=== PATIENT | female | born 1960 | race Caucasian/White ===

== ENCOUNTER → 2017-08-03 | Outpatient (CLI) | DX: Z01.812 Encounter for preprocedural laboratory examination (principal); Z01.811 Encounter for preprocedural respiratory examination; Z01.810 Encounter for preprocedural cardiovascular examination; I73.9 Peripheral vascular disease, unspecified; R94.31 Abnormal electrocardiogram [ECG] [EKG] ==

== ENCOUNTER 2017-08-07 05:48 | Inpatient (IN) | payer MEDICARE, OTHER ==
[2017-08-07] VITALS (12 sets, daily range): BP systolic 94–123; BP diastolic 66–81; PULSE 59–92; RESP 16–18; TEMP 97.4–97.7; O2SAT 95–99
[~2017-08-07] VITALS: Ht 147.3 cm; Wt 49.5 kg
[~2017-08-07 05:48] MED LIST: AMIT50TA3 PO; BENA25CA4 PO; METF500T PO; SERT-132 PO; TIZA4CAP3 PO; VENL75CA44 PO; WOMETAB5 PO
[2017-08-07] MEDS ORDERED: POVIDONE IODINE 5% (ANTISEPSIS KIT) 4 APPLICATIONS EACH NARE PRN (06:15)
[2017-08-07] MEDS ORDERED: CHLORHEXIDINE GLUCONATE 2 % 1 PACK (2 CLOTHS) TOPICAL PRN (06:15)
[2017-08-07] MEDS ORDERED: METOPROLOL TARTRATE 25 MG TAB PO PRN (06:15)
[2017-08-07] MEDS ORDERED: SODIUM CHLORID 0.9% 500 ML IV PRN (06:15)
[2017-08-07] MEDS ORDERED: PROTAMINE SULFATE 50 MG/5 ML VIAL ONE (06:35)
[2017-08-07] MEDS ORDERED: THROMBIN (TOPICAL) 20,000 UNIT SPRAY KIT ONE ×2 (06:36→11:35)
[2017-08-07] MEDS ORDERED: HEPARIN-NS/PF INJ 500 ML ONE (06:36)
[2017-08-07] MEDS ORDERED: ceFAZolin 2 GM PREMIX 0 ML ONE (06:36)
[2017-08-07] MEDS ORDERED: HEPARIN SODIUM - IV 10,000 UNITS/10 ML VIAL ONE (06:36)
[2017-08-07] MEDS ORDERED: HYDR-3366 PO (07:38)
--- NOTE | 2017-08-07 07:38 | HHI.HP ---
History of Present Illness Chief Complaint: PAD, B LE rest pain History of Present Illness 56 yo female with R > L rest pain. No tissue loss. Presents for ABF. Past/Family/Social History Past Medical History HTN OA anxiety asthma COPD DM XOL HTN Past Surgical History BTL breast surgery Social History + tobacco although she QUIT 2 weeks ago Family History NC Home Medications Reported Medications Multiple Vitamins W/ Minerals (Womens One Daily) 27 Mg-0.4 Mg Tab, 1 TAB PO DAILY 08/03/17 Tizanidine (Tizanidine) 4 Mg Cap, 4 MG PO TID for Muscle Spasm, CAP 0 Refills 08/03/17 Amitriptyline (Amitriptyline) 50 Mg Tab, 50 MG PO DAILY, TAB 08/03/17 Metformin (Metformin) 500 Mg Tab, 500 MG PO BIDPC for Blood Sugar Management, # 60 TAB 0 Refills 08/03/17 Sertraline (Sertraline) 50 Mg Tab, 50 MG PO DAILY, #30 TAB 0 Refills 08/03/17 Venlafaxine ER 24 HR (Venlafaxine ER 24 HR) 75 Mg Cap, 75 MG PO DAILY, #30 CAP 0 Refills 08/03/17 Diphenhydramine HCl (Benadryl Allergy) 25 Mg Cap, 25 MG PO QID Y for ALLERGIES 08/03/17 Discontinued Reported Medications Miscellaneous (No Current Meds) Misc 07/02/12 Discontinued Scripts Azithromycin (Zithromax Z-Shady) 250 Mg Tab, 250 MG PO DIRECTED for 5 Days 500 MG (2 TABLETS) PO ON DAY 1, THEN 250 MG (1 TABLET) PO ON DAYS 2 TO 5. Prov:Praveen Brooks MD 07/02/12 Albuterol Sulfate (Proventil Mdi) 17 Gm Aero, 2 PUFF INH QIDPRN, #1 6 Refills Prov:Praveen Brooks MD 07/02/12 Prednisone (Deltasone) 50 Mg Tab, 50 MG PO DAILY, #5 Prov:Praveen Brooks MD 07/02/12 Coded Allergies: albuterol (Unverified Allergy, Severe, SOB, 08/07/17) epinephrine (Unverified Allergy, Severe, SOB, 08/07/17) Uncoded Allergies: DRISTAN (Allergy, Severe, SOB, 07/02/12) Review of Systems Constitutional: DENIES: Weight loss, Chills Cardiovascular: COMPLAINS OF: Claudication, DENIES: Chest pain Psychiatric: COMPLAINS OF: Anxiety Physical Exam Neuro: alert, oriented, appropriately anxious, HERNANDEZ without focal deficits HEENT: NC/AT Neck: no JVD Heart: reg rate, no M Lungs: clear B Abdomen: NT Vascular: nonpalpable femoral pulses Extremities: no wounds, HERNANDEZ pending CTA ([place]) reviewed Caprini VTE Risk Assessment Caprini VTE Risk Assessment: No/Low Risk (score <= 1) Caprini Risk Assessment Model Point Value = 1 Point Value = 2 Point Value = 3 Point Value = 5 Age 41-60 Minor surgery BMI > 25 kg/m2 Swollen legs Varicose veins or History of unexplained or recurrent spontaneous Oral contraceptives or hormone replacement Sepsis (< 1 month) Serious lung disease, including pneumonia (< 1 month) Abnormal pulmonary function Acute myocardial infarction Congestive heart failure (< 1 month) History of inflammatory bowel disease Medical patient at bed rest Age 61-74 Arthroscopic surgery Major open surgery (> 45 min) Laparoscopic surgery (> 45 min) Malignancy Confined to bed (> 72 hours) Immobilizing plaster cast Central venous access Age >= 75 History of VTE Family history of VTE Factor V Leiden Prothrombin [id number] Lupus anticoagulant Anticardiolipin antibodies Elevated serum homocysteine Heparin-induced thrombocytopenia Other congenital or acquired thrombophilia Stroke (< 1 month) Elective arthroplasty Hip, pelvis, or leg fracture Acute spinal cord injury (< 1 month) Prophylaxis Regimen Total Risk Factor Score Risk Level Prophylaxis Regimen 0-1 Low Early ambulation 2 Moderate Order ONE of the following: *Sequential Compression Device (SCD) *Heparin 5000 units SQ BID 3-4 Higher Order ONE of the following medications: *Heparin 5000 units SQ TID *Enoxaparin/Lovenox 40 mg SQ daily (WT < 150 kg, CrCl > 30 mL/min) *Enoxaparin/Lovenox 30 mg SQ daily (WT < 150 kg, CrCl > 10-29 mL/min) *Enoxaparin/Lovenox 30 mg SQ BID (WT < 150 kg, CrCl > 30 mL/min) AND/OR *Sequential Compression Device (SCD) 5 or more Highest Order ONE of the following medications: *Heparin 5000 units SQ TID (Preferred with Epidurals) *Enoxaparin/Lovenox 40 mg SQ daily (WT < 150 kg, CrCl > 30 mL/min) *Enoxaparin/Lovenox 30 mg SQ daily (WT < 150 kg, CrCl > 10-29 mL/min) *Enoxaparin/Lovenox 30 mg SQ BID (WT < 150 kg, CrCl > 30 mL/min) AND *Sequential Compression Device (SCD) Assessment and Plan Plan To OR for Aorto-bifemoral bypass pt understands risks and benefits To OR then CVICU post-op Son [phone] Aashish Leigh MD August 07, 2017 07:37
[2017-08-07] MEDS: LACTATED RINGER'S 1000 ML IV PRN ×2 (07:45→16:16)
[2017-08-07] MEDS ORDERED: ACETAMINOPHEN 1000 MG/100 ML 100 ML IV ONE (07:51)
[2017-08-07] MEDS ORDERED: KETAMINE HCL 500 MG/10 ML VIAL ONE (07:51)
[2017-08-07] MEDS ORDERED: ceFAZolin INJ 1,000 MG VIAL ONE (08:37)
--- NOTE | 2017-08-07 11:23 | HHI.PR ---
cc: Aashish Leigh MD Immediate Post Op Note Procedure Date: August 07, 2017 Pre Op Diagnosis: PAD, aorto-iliac occlusive disease Post Op Diagnosis: same Surgeon: Aashish Leigh Secondary Education Professor(s): Jamel Verduzco Procedure: 1. Exploration of B FLUORESCENT LIGHTING MODEL MAKER 2. 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
[2017-08-07] MEDS ORDERED: BISACODYL 10 MG SUPP RECTAL PRN (11:30)
[2017-08-07] MEDS ORDERED: diphenhydrAMINE HCL 25 MG CAP PO PRN (11:30)
[2017-08-07] MEDS ORDERED: SENNOSIDES 8.6 MG TAB PO PRN (11:30)
[2017-08-07] MEDS ORDERED: MAGNESIUM HYDROXIDE SUSP 30 ML CUP PO PRN (11:30)
[2017-08-07] MEDS ORDERED: LACTULOSE SYRUP 20 GM/30 ML CUP PO PRN (11:30)
[2017-08-07] MEDS ORDERED: DO NOT ADM ANY ANTICOAGULANT DRUGS PRN (11:55)
[2017-08-07] MEDS ORDERED: MIDAZOLAM HCL 2 MG/2 ML VIAL ONE (11:56)
[2017-08-07] MEDS ORDERED: MORPHINE SULFATE 4 MG/ML INJ ONE (11:57)
[2017-08-07] MEDS ORDERED: LACTATED RINGER'S 1000 ML INJ 1,000 ML IV ONE (12:00)
[2017-08-07] MEDS ORDERED: NORMOSOL R INJ 1,000 ML IV ONE (12:00)
[2017-08-07] MEDS ORDERED: PROPOFOL 200 MG/20 ML AMP IV ONE (12:00)
[2017-08-07] MEDS ORDERED: GLYCOPYRROLATE 1 MG/5 ML SYRINGE IV PUSH ONE (12:00)
[2017-08-07] MEDS ORDERED: ePHEDrine/NS 25 MG/5 ML SYRINGE IV ONE (12:00)
[2017-08-07] MEDS ORDERED: ROCURONIUM INJ 50 MG/5 ML SYRINGE IV PUSH ONE (12:00)
[2017-08-07] MEDS ORDERED: LIDOCAINE HCL 1% PF 5 ML SYRINGE OTHER ONE (12:00)
[2017-08-07] MEDS ORDERED: NEOSTIGMINE 5 MG/5 ML SYRINGE IV PUSH ONE (12:00)
[2017-08-07] MEDS ORDERED: PHENYLEPH/NS 1000 MCG/10 ML SYR IV ONE (12:00)
[2017-08-07] MEDS ORDERED: DEXAMETHASONE SOD PHOS 4 MG/ML VIAL IV ONE (12:00)
[2017-08-07] MEDS ORDERED: ONDANSETRON HCL 4 MG/2 ML VIAL IV ONE (12:00)
[2017-08-07] MEDS ORDERED: LABETALOL HCL 100 MG/20 ML VIAL IV ONE (12:00)
[2017-08-07] MEDS ORDERED: SODIUM CHLORID 0.9% 500 ML INJ 500 ML IV ONE (12:00)
[2017-08-07] MEDS ORDERED: *morphine SULFATE 10 MG/ML PERIprocedure ONLY ONE ×2 (12:09→12:18)
--- NOTE | 2017-08-07 16:06 | MP ---
cc: Aashish Leigh MD DATE OF OPERATION: PREOPERATIVE DIAGNOSIS: Aortoiliac occlusive disease. POSTOPERATIVE DIAGNOSIS: Aortoiliac occlusive disease. PROCEDURES: 1. Bilateral groin exploration. 2. Exploratory laparotomy. ATTENDING SURGEON: Aashish Leigh MD FOOD SCIENTIST SURGEON: Jamel Verduzco. ANESTHESIA: General. INDICATIONS FOR PROCEDURE: Ms. Oliveira is a 56-year-old lady with aortoiliac occlusive disease and was planned for an aorto bifemoral bypass graft. Intraoperatively, it was found that she had thick porcelain aorta that even with the application of 2 aortic clamps, the infrarenal aortic occlusion was not possible and as such, the procedure was aborted. DESCRIPTION OF PROCEDURE: Informed consent was obtained from the patient. She was taken to the operating room and placed supine on the operating table. An appropriate timeout was taken to ensure the patient's identity, the operative site, and planned procedure. The administration of 1 gram of Ancef was initiated prior to skin incision. We discontinued it after a single preoperative dose. The patient was prepped from her nipples to her toes. A vertical incision was made in both groins and carried down to subcutaneous tissue with electrocautery. The common femoral artery was identified and dissected free for several centimeters. The profunda and superficial femoral arteries were, also, dissected free and encircled with vessel loops. We then made a midline laparotomy from her xiphoid to just above her pubis, carried down to subcutaneous tissue with electrocautery. The fascia was divided and the peritoneum was sharply entered. The abdominal contents were explored and noted to have no untoward pathology. The nasogastric tube was noted to be in the stomach. The viscera were swept to the patient's right-hand side and the retroperitoneum was explored. The Bookwalter retractor was set up and then, we dissected from the terminal aorta all the way up to the base of the SMA, including the renal arteries. Only at the renal arteries was the aorta somewhat soft and a clamp application, at this point, still resulted in a palpable left femoral pulse. Multiple clamps were then applied, but they were unable to occlude her aorta. Decision was made to abort the procedure at this time. The clamps were released. The abdominal contents were allowed to return back to their normal anatomic position. The abdomen was closed with #1 looped PDS, 2-0 PolySorb, and 4-0 Monocryl. The groins were closed in 4 layers with 2-0 PolySorb, 3-0 PolySorb and 4-0 Monocryl. Sponge and needle counts were correct at the end of the case. I was present and scrubbed for the entire procedure. MD PATRICK Cobos/BIRD/jarrod , 01:18 PM , 01:49 PM VITALY
[2017-08-07] MEDS: metFORMIN HCL 500 MG TAB PO SCH (18:00)
[2017-08-07] MEDS ORDERED: ONDANSETRON ODT 4 MG TAB PO PRN (18:30)
[2017-08-07] MEDS: DOCUSATE SODIUM 50 MG/SENNA 8.6 MG TAB PO SCH (20:59)
[2017-08-07] MEDS: ATORVASTATIN 40 MG TAB PO SCH (20:59)
[2017-08-07] MEDS: FAMOTIDINE 20 MG TAB PO SCH (21:00)
[2017-08-07] MEDS: HYDROmorphone HCL 2 MG TAB PO PRN (23:12)
[2017-08-08] VITALS (28 sets, daily range): BP systolic 105–157; BP diastolic 62–82; PULSE 71–101; RESP 18–20; TEMP 98–98.5; O2SAT 94–100
[2017-08-08] MEDS: HYDROmorphone HCL 2 MG TAB PO PRN ×5 (04:15→20:43)
[2017-08-08 04:47] LABS: HEMATOCRIT 39.9 % (35.0-46.0); HEMOGLOBIN 13.2 GM/DL (11.6-15.3); MEAN CELL VOLUME 90.3 FL (80.0-100.0); MEAN CORPUSCULAR HGB CONC 33.2 % (32.0-36.0); MEAN PLATELET VOLUME 9.5 FL (7.0-11.0); PLATELET COUNT 272 TH/MM3 (150-450); RED BLOOD COUNT 4.42 MIL/MM3 (4.00-5.30); RED CELL DISTRIBUTION WIDTH 14.7 % (11.6-17.2); WHITE BLOOD COUNT 14.4 TH/MM3 (4.0-11.0)
[2017-08-08 05:12] LABS: BICARBONATE 25.6 MEQ/L (21.0-32.0); CALCIUM 8.8 MG/DL (8.5-10.1); CREATININE 0.62 MG/DL (0.50-1.00)
[2017-08-08] MEDS: SERTRALINE HCL 50 MG TAB PO SCH (08:25)
[2017-08-08] MEDS: DOCUSATE SODIUM 50 MG/SENNA 8.6 MG TAB PO SCH ×2 (08:25→20:44)
[2017-08-08] MEDS: VENLAFAXINE HCL XR 75 MG CAP PO SCH (08:25)
[2017-08-08] MEDS: AMITRIPTYLINE HCL 50 MG TAB PO SCH (08:25)
[2017-08-08] MEDS: ASPIRIN 325 MG TAB PO SCH (08:26)
[2017-08-08] MEDS: FAMOTIDINE 20 MG TAB PO SCH ×2 (08:26→20:43)
[2017-08-08] MEDS: MULTIVITAMINS/MINERALS THERAPEUTIC TAB PO SCH (08:26)
[2017-08-08] MEDS: metFORMIN HCL 500 MG TAB PO SCH ×2 (08:27→17:34)
[2017-08-08] MEDS: ENOXAPARIN SODIUM 30 MG/0.3 ML SYRINGE SQ SCH (10:29)
--- NOTE | 2017-08-08 11:02 | PD.VS.PN ---
Subjective POD #: 1 Procedure(s): Exploration of B NET DEVELOPER Ex lap Subjective/Hospital Course 56/F Sitting in chair this am doing well Pt denied nausea Pain controlled Neg Flatulence NG tube in place LE warm w/ motor intact Objective Vitals/I&O Date Time Temp Pulse Resp B/P (MAP) Pulse Ox O2 Delivery O2 Flow Rate FiO2 08/08/17 10:00 82 08/08/17 09:00 87 08/08/17 08:00 83 08/08/17 07:32 98.0 91 18 110/73 (85) 94 08/08/17 07:32 94 Room Air 08/08/17 07:00 84 08/08/17 06:23 101 08/08/17 05:00 74 08/08/17 04:00 93 08/08/17 03:15 98.5 100 20 157/82 (107) 100 08/08/17 03:15 94 Room Air 08/08/17 03:00 76 08/08/17 02:00 74 08/08/17 01:00 71 08/08/17 00:00 72 08/07/17 23:40 98 Nasal Cannula 3.00 08/07/17 23:40 97.4 92 18 122/81 (95) 98 08/07/17 23:00 77 08/07/17 22:00 70 08/07/17 21:00 86 08/07/17 20:35 97.6 88 18 111/70 (84) 99 08/07/17 20:35 98 Nasal Cannula 3.00 08/07/17 20:00 76 08/07/17 19:00 59 08/07/17 18:00 86 08/07/17 17:00 65 08/07/17 16:00 72 08/07/17 16:00 97.7 88 16 123/75 (91) 97 08/07/17 15:00 74 08/07/17 14:00 97.6 88 16 94/66 (75) 95 08/07/17 14:00 94 Nasal Cannula 3.00 08/07/17 13:45 98.3 67 20 94/58 (70) 94 08/07/17 13:00 67 20 96/58 (71) 94 Arterial Line 08/07/17 12:45 64 20 107/62 (77) 94 Arterial Line 08/07/17 12:30 72 20 117/71 (86) 97 Arterial Line 08/07/17 12:15 66 20 171/69 (103) 99 171/84 (113) 08/07/17 11:55 98.0 77 20 167/84 (111) 97 176/66 (102) 08/08/17 08/08/17 08/08/17 07:00 15:00 23:00 Intake Total 475 ml Output Total 1125 ml Balance -650 ml Exam: GENERAL: A&OX3,NAD,GCS 15 SKIN: Prevena wound vac to B groins in place w/o hematoma or swelling Mid line abdominal incision intact w/o D/S mild ecchymosis present mid to distal end of incision B LE Warm and dry w/ motor intact NECK: Supple, trachea midline. No JVD or lymphadenopathy. CARDIOVASCULAR: Regular rate and rhythm without murmurs, gallops, or rubs. RESPIRATORY: Breath sounds equal bilaterally. No accessory muscle use. GASTROINTESTINAL: Abdomen S/NT, nondistended/ BS present MUSCULOSKELETAL: No cyanosis, or edema. L DP/PT biphasic R DP faint monophasic DP/PT LE warm w/ motor intact NG tube in place Laboratory Laboratory Tests Test 08/08/17 03:47 White Blood Count 14.4 Red Blood Count 4.42 Hemoglobin 13.2 Hematocrit 39.9 Mean Corpuscular Volume 90.3 Mean Corpuscular Hemoglobin 30.0 Mean Corpuscular Hemoglobin Concent 33.2 Red Cell Distribution Width 14.7 Platelet Count 272 Mean Platelet Volume 9.5 Blood Urea Nitrogen 10 Creatinine 0.62 Random Glucose 103 Calcium Level 8.8 Sodium Level 138 Potassium Level 3.9 Chloride Level 100 Carbon Dioxide Level 25.6 Anion Gap 12 Estimat Glomerular Filtration Rate 99 Assessment and Plan Assessment: (1) PVD (peripheral vascular disease) with claudication Plan 56/F w/ a Hx of PAD, B LE rest pain R > L rest pain. POD 1 Exploration of B NET DEVELOPER/Ex lap doing well w/o nausea Abdomen S/NT/+ BS LE warm w/ motor intact Pain controlled Plan Pt to remain NPO Keep NG tube in place D/C Jordan cath PT/OOB Obdulia Staton PRODUCT OPERATIONS ASSOCIATE [facility]/[place] [phone] Discharge Planning 3-4 days Obdulia Staton [facility] August 08, 2017 11:02
[2017-08-08] MEDS: ATORVASTATIN 40 MG TAB PO SCH (20:43)
[2017-08-09] VITALS (28 sets, daily range): BP systolic 105–163; BP diastolic 65–77; PULSE 63–99; RESP 16–20; TEMP 97.6–98.6; O2SAT 92–97
[2017-08-09] MEDS: HYDROmorphone HCL 2 MG TAB PO PRN ×5 (03:56→20:55)
--- NOTE | 2017-08-09 08:02 | PD.VS.PN ---
Subjective POD #: 2 Procedure(s): Exploration of B WORKERS COMPENSATION COORDINATOR Ex lap Subjective/Hospital Course looks great feet ok ambulated no nausea since NGT out sitting in chair only complaint is R groin tape Objective Vitals/I&O Date Time Temp Pulse Resp B/P (MAP) Pulse Ox O2 Delivery O2 Flow Rate FiO2 08/09/17 06:00 80 08/09/17 05:00 82 08/09/17 04:00 88 08/09/17 04:00 92 Room Air 08/09/17 03:56 98.3 85 19 148/69 (95) 92 08/09/17 03:00 80 08/09/17 02:00 80 08/09/17 01:00 82 08/09/17 00:00 94 Room Air 08/09/17 00:00 98.6 98 20 160/65 (96) 94 08/09/17 00:00 92 08/08/17 23:00 100 08/08/17 22:00 78 08/08/17 21:00 90 08/08/17 20:00 80 08/08/17 20:00 98.4 86 18 131/62 (85) 94 08/08/17 20:00 94 Room Air 08/08/17 19:00 90 08/08/17 18:00 98 08/08/17 17:00 80 08/08/17 16:00 91 08/08/17 15:15 98.0 76 18 105/67 (80) 97 08/08/17 15:14 97 Room Air 08/08/17 15:00 86 08/08/17 14:00 77 08/08/17 13:00 78 08/08/17 12:00 83 08/08/17 11:34 98.1 89 18 112/69 (83) 96 08/08/17 11:33 96 Room Air 08/08/17 11:00 88 08/08/17 10:00 82 08/08/17 09:00 87 08/09/17 08/09/17 08/09/17 07:00 15:00 23:00 Intake Total 200 ml Output Total 650 ml Balance -450 ml Exam: abdomen soft groins soft motor intact Assessment and Plan Assessment: (1) PVD (peripheral vascular disease) with claudication Plan 56/F w/ a Hx of PAD, B LE rest pain R > L rest pain. POD 2 Exploration of B WORKERS COMPENSATION COORDINATOR/Ex lap doing well w/o nausea 1. Cl liq diet and ADAT 2. Ok to d/c R groin Prevena for patient comfort 3. reg meds Discharge Planning 2 days Aashish Leigh MD August 09, 2017 08:02
[2017-08-09] MEDS: SERTRALINE HCL 50 MG TAB PO SCH (08:42)
[2017-08-09] MEDS: metFORMIN HCL 500 MG TAB PO SCH ×2 (08:42→16:51)
[2017-08-09] MEDS: FAMOTIDINE 20 MG TAB PO SCH ×2 (08:42→20:54)
[2017-08-09] MEDS: VENLAFAXINE HCL XR 75 MG CAP PO SCH (08:42)
[2017-08-09] MEDS: AMITRIPTYLINE HCL 50 MG TAB PO SCH (08:42)
[2017-08-09] MEDS: ASPIRIN 325 MG TAB PO SCH (08:43)
[2017-08-09] MEDS: DOCUSATE SODIUM 50 MG/SENNA 8.6 MG TAB PO SCH ×2 (08:43→20:54)
[2017-08-09] MEDS: MULTIVITAMINS/MINERALS THERAPEUTIC TAB PO SCH (08:49)
[2017-08-09] MEDS: ENOXAPARIN SODIUM 30 MG/0.3 ML SYRINGE SQ SCH (11:20)
[2017-08-09] MEDS: ATORVASTATIN 40 MG TAB PO SCH (20:54)
[2017-08-10] VITALS (25 sets, daily range): BP systolic 90–158; BP diastolic 56–73; PULSE 74–107; RESP 16–18; TEMP 98–98.7; O2SAT 93–95
[2017-08-10] MEDS: HYDROmorphone HCL 2 MG TAB PO PRN ×5 (02:00→23:20)
[2017-08-10] MEDS: SERTRALINE HCL 50 MG TAB PO SCH (08:18)
[2017-08-10] MEDS: VENLAFAXINE HCL XR 75 MG CAP PO SCH (08:19)
[2017-08-10] MEDS: ASPIRIN 325 MG TAB PO SCH (08:19)
[2017-08-10] MEDS: DOCUSATE SODIUM 50 MG/SENNA 8.6 MG TAB PO SCH ×2 (08:19→20:29)
[2017-08-10] MEDS: MULTIVITAMINS/MINERALS THERAPEUTIC TAB PO SCH (08:20)
[2017-08-10] MEDS: AMITRIPTYLINE HCL 50 MG TAB PO SCH (08:20)
[2017-08-10] MEDS: FAMOTIDINE 20 MG TAB PO SCH ×2 (08:20→20:29)
[2017-08-10] MEDS: metFORMIN HCL 500 MG TAB PO SCH ×2 (08:20→18:10)
--- NOTE | 2017-08-10 08:43 | PD.VS.PN ---
Subjective POD #: 1 Procedure(s): Exploration of B GAS INSPECTOR Ex lap Subjective/Hospital Course POD 3 Pt w/o c/o abdominal pain or nausea Pt tolerating clear liquid diet Pt c/o R groin discomfort + flatulence Objective Vitals/I&O Date Time Temp Pulse Resp B/P (MAP) Pulse Ox O2 Delivery O2 Flow Rate FiO2 08/10/17 07:30 16 08/10/17 06:00 78 08/10/17 05:00 78 08/10/17 04:00 76 08/10/17 03:16 95 Room Air 08/10/17 03:00 74 08/10/17 03:00 98.7 90 16 115/56 (75) 95 08/10/17 02:00 80 08/10/17 01:00 92 08/10/17 00:13 98.6 104 16 158/73 (101) 95 08/10/17 00:00 92 08/09/17 23:52 95 Room Air 08/09/17 23:00 82 08/09/17 22:00 82 08/09/17 21:00 92 08/09/17 20:00 96 Room Air 08/09/17 20:00 98.6 95 16 163/77 (105) 96 08/09/17 20:00 84 08/09/17 19:00 74 08/09/17 18:00 82 08/09/17 17:00 94 08/09/17 16:00 76 08/09/17 15:40 97.6 96 18 155/73 (100) 97 08/09/17 15:39 97 Room Air 08/09/17 15:00 88 08/09/17 14:00 78 08/09/17 13:00 84 08/09/17 12:00 77 08/09/17 11:49 94 Room Air 08/09/17 11:45 95 08/09/17 11:00 98.0 76 18 105/67 (80) 97 08/09/17 10:00 63 08/09/17 09:00 76 08/10/17 08/10/17 08/10/17 07:00 15:00 23:00 Intake Total 480 ml Output Total 360 ml Balance 120 ml Exam: GENERAL: A&OX3,NAD,GCS 15 SKIN: LE Warm and dry w/ motor intact Midline abdominal incision intact w/o S/D/O HEAD: Normocephalic. EYES: No scleral icterus. No injection or drainage. NECK: Supple, trachea midline. No JVD or lymphadenopathy. CARDIOVASCULAR: Regular rate and rhythm without murmurs, gallops, or rubs. RESPIRATORY: Breath sounds equal bilaterally. No accessory muscle use. GASTROINTESTINAL: Abdomen soft, non-tender, nondistended. R/L groins w/ prevena wound vac intact- No swelling or hematoma noted MUSCULOSKELETAL: No cyanosis, or edema. Pulses: R DP- Biphasic R PT- Faint Monophasic L DP- Biphasic L PT- Biphasic Assessment and Plan Assessment: (1) PVD (peripheral vascular disease) with claudication Plan 56/F w/ a Hx of PAD, B LE rest pain R > L rest pain. POD 3 Exploration of B GAS INSPECTOR/Ex lap doing well w/o nausea Plan Advance diet- (Heart Healthy) PT-OOB/ambulate D/C planning Obdulia Staton NP [facility] [phone] Discharge Planning Tomorrow am Obdulia Staton [facility] August 10, 2017 08:43
[2017-08-10] MEDS: ENOXAPARIN SODIUM 30 MG/0.3 ML SYRINGE SQ SCH (13:55)
[2017-08-10] MEDS: ATORVASTATIN 40 MG TAB PO SCH (20:29)
[2017-08-11] VITALS: BP 134/64; PULSE 89; PULSE 92; RESP 16; TEMP 98.6; O2SAT 95
[2017-08-11 01:00] VITALS: PULSE 88
[2017-08-11 02:00] VITALS: PULSE 93
[2017-08-11 03:00] VITALS: PULSE 92
[2017-08-11] MEDS: HYDROmorphone HCL 2 MG TAB PO PRN (03:50)
[2017-08-11 04:00] VITALS: BP 131/100; PULSE 94; RESP 16; TEMP 98.6; O2SAT 96
[2017-08-11 05:00] VITALS: PULSE 91
--- NOTE | 2017-08-11 07:45 | PD.VS.PN ---
Subjective POD #: 4 Procedure(s): Exploration of B ELECTROPHYSIOLOGY TECH Ex lap Subjective/Hospital Course POD 4 Pt w/o c/o abdominal pain or nausea Pt tolerating diet + flatulence Removed Prevena wound vac's (B groin) Objective Vitals/I&O Date Time Temp Pulse Resp B/P (MAP) Pulse Ox O2 Delivery O2 Flow Rate FiO2 08/11/17 05:00 91 08/11/17 04:00 98.6 94 16 131/100 (110) 96 08/11/17 04:00 94 08/11/17 03:00 92 08/11/17 03:00 96 Room Air 08/11/17 02:00 93 08/11/17 01:00 88 08/11/17 00:00 95 Room Air 08/11/17 00:00 92 08/11/17 00:00 98.6 89 16 134/64 (87) 95 08/10/17 23:00 85 08/10/17 22:00 88 08/10/17 21:00 86 08/10/17 20:00 92 08/10/17 20:00 95 Room Air 08/10/17 20:00 98.5 100 16 133/56 (81) 95 08/10/17 19:00 86 08/10/17 18:00 106 08/10/17 17:00 89 08/10/17 16:00 84 08/10/17 15:18 14 08/10/17 15:00 98.0 91 18 108/59 (75) 93 08/10/17 15:00 93 Room Air 08/10/17 15:00 104 08/10/17 14:00 104 08/10/17 13:00 89 08/10/17 12:00 107 08/10/17 11:00 95 Room Air 08/10/17 11:00 92 08/10/17 11:00 98.3 103 16 90/61 (71) 95 08/10/17 10:00 92 08/10/17 09:20 14 08/10/17 09:00 82 08/10/17 08:00 94 08/11/17 08/11/17 08/11/17 07:00 15:00 23:00 Intake Total 420 ml Output Total 0 ml Balance 420 ml Exam: GENERAL: A&OX3,NAD,GCS 15 SKIN: LE Warm and dry w/ motor intact Midline abdominal incision intact w/o S/D/O R/L groin incisions intact w/o R/D/S/O HEAD: Normocephalic. EYES: No scleral icterus. No injection or drainage. NECK: Supple, trachea midline. No JVD or lymphadenopathy. CARDIOVASCULAR: Regular rate and rhythm without murmurs, gallops, or rubs. RESPIRATORY: Breath sounds equal bilaterally. No accessory muscle use. GASTROINTESTINAL: Abdomen soft, non-tender, nondistended. MUSCULOSKELETAL: No cyanosis, or edema. R DP- Biphasic R PT- Faint Monophasic L DP- Biphasic L PT- Biphasic Assessment and Plan Assessment: (1) PVD (peripheral vascular disease) with claudication Plan 56/F w/ a Hx of PAD, B LE rest pain R > L rest pain. POD 4 Exploration of B ELECTROPHYSIOLOGY TECH/Ex lap doing well w/o nausea Plan Pt clear for D/C Arranged ax fem-fem surgical intervention on 08/28/17 w/ Dr. Leigh Discussed post operative care and management with pt Questions answered Obdulia Staton NP [facility]/[employer] [phone] Discharge Planning Today Obdulia Staton August 11, 2017 07:45
[2017-08-11] MEDS ORDERED: OXYC1CAP PO (07:51)
[2017-08-11] MEDS ORDERED: ASA325 PO (07:53)
[2017-08-11] MEDS ORDERED: ATOR40TA16 PO (07:53)
--- NOTE | 2017-08-11 08:05 | PD.VS.DC ---
Discharge Summary Admission Date: August 07, 2017 at 05:48 Discharge Date: August 11, 2017 Admission Diagnosis: (1) PVD (peripheral vascular disease) with claudication Discharge Diagnosis: (1) PVD (peripheral vascular disease) with claudication ICD Codes: I73.9 - Peripheral vascular disease, unspecified Brief History from admission 56 yo female with R > L rest pain. No tissue loss. Presents for ABF. Procedure(s): Exploration of B HAND SEWER Ex lap Significant Findings GENERAL: A&OX3,NAD,GCS 15 SKIN: LE Warm and dry w/ motor intact Midline abdominal incision intact w/o S/D/O R/L groin incisions intact w/o R/D/S/O HEAD: Normocephalic. EYES: No scleral icterus. No injection or drainage. NECK: Supple, trachea midline. No JVD or lymphadenopathy. CARDIOVASCULAR: Regular rate and rhythm without murmurs, gallops, or rubs. RESPIRATORY: Breath sounds equal bilaterally. No accessory muscle use. GASTROINTESTINAL: Abdomen soft, non-tender, nondistended. MUSCULOSKELETAL: No cyanosis, or edema. R DP- Biphasic R PT- Faint Monophasic L DP- Biphasic L PT- Biphasic Hospital Course: 56 yo female with R > L rest pain. No tissue loss. 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 POD 1 Sitting in chair this am doing well Pt denied nausea Pain controlled Neg Flatulence NG tube in place LE warm w/ motor intact POD 2 looks great feet ok ambulated no nausea since NGT out sitting in chair only complaint is R groin tape POD 3 Pt w/o c/o abdominal pain or nausea Pt tolerating clear liquid diet Pt c/o R groin discomfort + flatulence POD 4 Pt w/o c/o abdominal pain or nausea Pt tolerating diet + flatulence Removed Prevena wound vac's (B groin) Pt clear for d/c Pt scheduled for an ax fem-fem for revascularization on 08/28/17 Discussed w/ pt Pt agrees with plan Allergies Coded Allergies Type Severity Reaction Last Updated Verified albuterol Allergy Severe SOB 08/07/17 No epinephrine Allergy Severe SOB 08/07/17 No Uncoded Allergies Type Severity Reaction Last Updated Verified DRISTAN Allergy Severe SOB 07/02/12 08/09/17 08/09/17 08/10/17 08/10/17 08/11/17 08/11/17 06:00 18:00 06:00 18:00 06:00 18:00 Intake Total 200 ml 960 ml 480 ml 1040 ml Output Total 650 ml 360 ml 0 ml Balance -450 ml 960 ml 120 ml 1040 ml Intake Oral 200 ml 960 ml 480 ml 1040 ml IV Total 0 ml Output Urine Total 650 ml 360 ml Stool Total 0 ml # Voids 4 6 # Bowel Movements 0 0 0 Orders Procedure Category Date Status Time Remove Urinary PAUL 08/08/17 In Process Catheter 10:37 Lactated Ringer's MED 08/07/17 Complete 1000 Ml Inj (Lr 1000 M 12:00 Sodium Chlorid 0.9% MED 08/07/17 Complete 500 Ml Inj (Ns 500 M 12:00 Normosol R Inj MED 08/07/17 Complete (Normosol R Inj) 12:00 Lidocaine Pf 1% Inj MED 08/07/17 Complete (Xylocaine-Mpf 1% In 12:00 Rocuronium Inj MED 08/07/17 Complete (Zemuron Inj) 12:00 Neostigmine Inj MED 08/07/17 Complete (Prostigmine Inj) 12:00 Glycopyrrolate Inj MED 08/07/17 Complete (Robinul Inj) 12:00 Phenyleph/Ns 1000 MED 08/07/17 Complete Mcg/10ml Syr (Neosynep 12:00 Ephedrine/Ns 25 Mg/5 MED 08/07/17 Complete Ml Syr (Ephedrine/N 12:00 Dexamethasone Inj MED 08/07/17 Complete (Decadron Inj) 12:00 Ondansetron Inj MED 08/07/17 Complete (Zofran Inj) 12:00 Propofol 200 Mg/20 Ml MED 08/07/17 Complete Inj (Diprivan 200 12:00 Labetalol Inj MED 08/07/17 Complete (Trandate Inj) 12:00 Diet Clear Liquid DIET 08/09/17 Complete Breakfast Diet Heart Healthy DIET 08/10/17 Transmitted Breakfast Consult Pt Eval & PT 5/24/18 Logged Treat 08:34 Attending Discharge DISCHARGE 08/11/17 Transmitted Order 07:52 Vital Signs Date Time Temp Pulse Resp B/P (MAP) Pulse Ox O2 Delivery O2 Flow Rate FiO2 08/11/17 05:00 91 08/11/17 04:00 98.6 94 16 131/100 (110) 96 08/11/17 04:00 94 08/11/17 03:00 92 08/11/17 03:00 96 Room Air 08/11/17 02:00 93 08/11/17 01:00 88 08/11/17 00:00 95 Room Air 08/11/17 00:00 92 08/11/17 00:00 98.6 89 16 134/64 (87) 95 08/10/17 23:00 85 08/10/17 22:00 88 08/10/17 21:00 86 08/10/17 20:00 92 08/10/17 20:00 95 Room Air 08/10/17 20:00 98.5 100 16 133/56 (81) 95 08/10/17 19:00 86 08/10/17 18:00 106 08/10/17 17:00 89 08/10/17 16:00 84 08/10/17 15:18 14 08/10/17 15:00 98.0 91 18 108/59 (75) 93 08/10/17 15:00 93 Room Air 08/10/17 15:00 104 08/10/17 14:00 104 08/10/17 13:00 89 08/10/17 12:00 107 08/10/17 11:00 95 Room Air 08/10/17 11:00 92 08/10/17 11:00 98.3 103 16 90/61 (71) 95 08/10/17 10:00 92 08/10/17 09:20 14 08/10/17 09:00 82 08/10/17 08:00 94 08/10/17 07:00 86 08/10/17 07:00 95 Room Air 08/10/17 07:00 98.2 100 18 151/70 (97) 95 08/10/17 06:00 78 08/10/17 05:00 78 08/10/17 04:00 76 08/10/17 03:16 95 Room Air 08/10/17 03:00 74 08/10/17 03:00 98.7 90 16 115/56 (75) 95 08/10/17 02:00 80 08/10/17 01:00 92 08/10/17 00:13 98.6 104 16 158/73 (101) 95 08/10/17 00:00 92 08/09/17 23:52 95 Room Air 08/09/17 23:00 82 08/09/17 22:00 82 08/09/17 21:00 92 08/09/17 20:00 96 Room Air 08/09/17 20:00 98.6 95 16 163/77 (105) 96 08/09/17 20:00 84 08/09/17 19:00 74 08/09/17 18:00 82 08/09/17 17:00 94 08/09/17 16:00 76 08/09/17 15:40 97.6 96 18 155/73 (100) 97 08/09/17 15:39 97 Room Air 08/09/17 15:00 88 08/09/17 14:00 78 08/09/17 13:00 84 08/09/17 12:00 77 08/09/17 11:49 94 Room Air 08/09/17 11:45 95 08/09/17 11:00 98.0 76 18 105/67 (80) 97 08/09/17 10:00 63 08/09/17 09:00 76 08/09/17 08:00 80 08/09/17 07:23 94 Room Air 08/09/17 07:23 97.6 99 18 155/75 (101) 94 08/09/17 07:00 92 08/09/17 06:00 80 08/09/17 05:00 82 08/09/17 04:00 88 08/09/17 04:00 92 Room Air 08/09/17 03:56 98.3 85 19 148/69 (95) 92 08/09/17 03:00 80 08/09/17 02:00 80 08/09/17 01:00 82 08/09/17 00:00 94 Room Air 08/09/17 00:00 98.6 98 20 160/65 (96) 94 08/09/17 00:00 92 08/08/17 23:00 100 08/08/17 22:00 78 08/08/17 21:00 90 08/08/17 20:00 80 08/08/17 20:00 98.4 86 18 131/62 (85) 94 08/08/17 20:00 94 Room Air 08/08/17 19:00 90 08/08/17 18:00 98 08/08/17 17:00 80 08/08/17 16:00 91 08/08/17 15:15 98.0 76 18 105/67 (80) 97 08/08/17 15:14 97 Room Air 08/08/17 15:00 86 08/08/17 14:00 77 08/08/17 13:00 78 08/08/17 12:00 83 08/08/17 11:34 98.1 89 18 112/69 (83) 96 08/08/17 11:33 96 Room Air 08/08/17 11:00 88 08/08/17 10:00 82 08/08/17 09:00 87 08/08/17 08:00 83 Discharge Condition: Good Discharge Disposition: Discharge Home Discharge Instructions: ACTIVITY Activities as tolerated MAY shower then pat dry incisions No perfumed soaps while bathing NO TUB baths until incisions are fully healed DIET You may resume your regular diabetic diet MEDICATIONS You may resume your daily home medications You were prescribed cardiovascular risk factor modification medications- Aspirin and Stain- take as prescribed You were prescribed a narcotic pain medication which may cause constipation- take with an over the counter stool softener You were prescribed a narcotic pain medication which may cause drowsiness- No driving while taking this medication WOUND CARE Leave your incisions open to air Report any increase in redness drainage or swelling Any questions or concerns: Call [facility] at [facility] [phone] Obdulia Staton August 11, 2017 08:05
[2017-08-11] MEDS ORDERED: COMMODE 3-IN-11 MIS (08:07)
[2017-08-11] MEDS ORDERED: GETGO ROLLING W1 MI1 (08:07)
[2017-08-11] MEDS: metFORMIN HCL 500 MG TAB PO SCH (08:59)
[2017-08-11] MEDS: MULTIVITAMINS/MINERALS THERAPEUTIC TAB PO SCH (08:59)
[2017-08-11] MEDS: ASPIRIN 325 MG TAB PO SCH (08:59)
[2017-08-11] MEDS: FAMOTIDINE 20 MG TAB PO SCH (08:59)
[2017-08-11] MEDS: DOCUSATE SODIUM 50 MG/SENNA 8.6 MG TAB PO SCH (09:00)
[2017-08-11] MEDS: VENLAFAXINE HCL XR 75 MG CAP PO SCH (09:00)
[2017-08-11] MEDS: AMITRIPTYLINE HCL 50 MG TAB PO SCH (09:00)
[2017-08-11] MEDS: SERTRALINE HCL 50 MG TAB PO SCH (09:00)
== END 2017-08-11 09:41 | disposition home or self-care (01) | DRG 254 ==
LOC: HSDI 05:48 → HCPC 14:05
PROVIDERS: ADMIT Surgery; ATTEND Surgery
PROC: 0WJG0ZZ Inspection of Peritoneal Cavity, Open Approach (ICD-10-PCS; 2017-08-07)
PROC: 03JY0ZZ Inspection of Upper Artery, Open Approach (ICD-10-PCS; principal; 2017-08-07 08:26)
DX: I74.09 Other arterial embolism and thrombosis of abdominal aorta (principal); E11.51 Type 2 diabetes mellitus with diabetic peripheral angiopathy without gangrene; I71.2 Thoracic aortic aneurysm, without rupture; F41.9 Anxiety disorder, unspecified; I10 Essential (primary) hypertension; J44.9 Chronic obstructive pulmonary disease, unspecified; R40.2410 Glasgow coma scale score 13-15, unspecified time; Z87.891 Personal history of nicotine dependence; Z79.84 Long term (current) use of oral hypoglycemic drugs
CPT/HCPCS: 80048; 85027; 86850; 86900; 86901; 86920; C1768; J0131; J0690; J1100; J1644; J1650; J2250; J2270; J2370; J2405; J2710; J2720; J3010; J7040; J7120

== ENCOUNTER → 2017-08-25 | Outpatient (CLI) | payer MEDICARE, OTHER ==
[~2017-08-25] MED LIST changes: +ASA325 PO; +ATOR40TA16 PO; +COMMODE 3-IN-11 MIS; +GETGO ROLLING W1 MI1; +OXYC1CAP PO
[2017-08-25 13:53] LABS: AUTOMATED NEUTROPHIL # 7.8 TH/MM3 (1.8-7.7); BASOPHIL # 0.1 TH/MM3 (0-0.2); BASOPHIL % 1.2 % (0.0-2.0); EOSINOPHIL # 0.4 TH/MM3 (0-0.4); EOSINOPHIL % 3.6 % (0.0-4.0); HEMATOCRIT 38.2 % (35.0-46.0); HEMOGLOBIN 12.6 GM/DL (11.6-15.3); LYMPH % 22.5 % (9.0-44.0); LYMPHOCYTE # 2.6 TH/MM3 (1.0-4.8); MEAN CELL VOLUME 90.2 FL (80.0-100.0); MEAN CORPUSCULAR HEMOGLOBIN 29.6 PG (27.0-34.0); MEAN CORPUSCULAR HGB CONC 32.9 % (32.0-36.0); MEAN PLATELET VOLUME 8.6 FL (7.0-11.0); MONO % 5.3 % (0.0-8.0); MONOCYTE # 0.6 TH/MM3 (0-0.9); NEUT % 67.4 % (16.0-70.0); PLATELET COUNT 575 TH/MM3 (150-450); RED BLOOD COUNT 4.24 MIL/MM3 (4.00-5.30); RED CELL DISTRIBUTION WIDTH 14.7 % (11.6-17.2); WHITE BLOOD COUNT 11.6 TH/MM3 (4.0-11.0)
[2017-08-25 13:56] LABS: BICARBONATE 27.1 MEQ/L (21.0-32.0); CALCIUM 10.3 MG/DL (8.5-10.1); CREATININE 0.88 MG/DL (0.50-1.00)
== END ==
LOC: CPRE 12:39
PROVIDERS: ATTEND Surgery
DX: Z01.812 Encounter for preprocedural laboratory examination (principal); I73.9 Peripheral vascular disease, unspecified
CPT/HCPCS: 36415; 80048; 85025; 85610

== ENCOUNTER 2017-08-28 05:42 | Inpatient (IN) | payer MEDICARE, OTHER ==
[~2017-08-28] VITALS: Ht 148.6 cm; Wt 49.0 kg
[2017-08-28] VITALS (12 sets, daily range): BP systolic 95–119; BP diastolic 57–63; PULSE 81–101; RESP 16–18; TEMP 97.1–98.2; O2SAT 97–98
[2017-08-28] MEDS ORDERED: CHLORHEXIDINE GLUCONATE 2 % 1 PACK (2 CLOTHS) TOPICAL PRN (06:15)
[2017-08-28] MEDS ORDERED: LACTATED RINGER'S 1000 ML IV PRN (06:15)
[2017-08-28] MEDS ORDERED: POVIDONE IODINE 5% (ANTISEPSIS KIT) 4 APPLICATIONS EACH NARE PRN (06:15)
[2017-08-28] MEDS ORDERED: METOPROLOL TARTRATE 25 MG TAB PO PRN (06:15)
[2017-08-28] MEDS ORDERED: SODIUM CHLORID 0.9% 500 ML IV PRN (06:15)
[2017-08-28] MEDS ORDERED: HEPARIN SODIUM - IV 10,000 UNITS/10 ML VIAL ONE (06:29)
[2017-08-28] MEDS ORDERED: PROTAMINE SULFATE 50 MG/5 ML VIAL ONE (06:29)
[2017-08-28] MEDS ORDERED: THROMBIN (TOPICAL) 20,000 UNIT SPRAY KIT ONE (06:29)
[2017-08-28] MEDS ORDERED: HEPARIN-NS/PF INJ 500 ML ONE (06:30)
[2017-08-28] MEDS ORDERED: ceFAZolin 2 GM PREMIX 0 ML ONE (06:30)
[2017-08-28] MEDS ORDERED: HEPARIN SODIUM - SQ 10,000 UNITS/ML VIAL ONE (06:37)
[2017-08-28] MEDS ORDERED: ceFAZolin INJ 1,000 MG VIAL ONE (07:18)
--- NOTE | 2017-08-28 07:24 | PD.VS.PN ---
Pre-operative Note Pre-operative diagnosis: PAD, severe aortoiliac occlusive disease Planned procedure: R ax-fem-fem Interval History: Pt had attempt at ABF but her aorta was a calcific pipe that couldn't be safely cross-clamped. She recovered well and now presents for extra-anatomic bypass. No f/c or other symptoms that would preclude OR. Labs: Hct 38 plt 575 cr 0.9 INR 1.0 Blood: T&S Imaging: CTA ([facility]) reviewed Orders: NPO Ancef 1g IV OCTOR Post-operative destination: PACU, then CPCU Operative site marked: Yes Consent: Informed consent has been obtained from Deidra Oliveira. I have explained the procedure in detail and discussed the risks, benefits, and potential complications. All questions have been answered. Patient contact information: Son [phone] Aashish Leigh MD Aug 28, 2017 07:24
[2017-08-28] MEDS ORDERED: BUPIVACAINE HCL PF 0.5% 10 ML VIAL ONE (09:41)
[2017-08-28] MEDS ORDERED: ACETAMINOPHEN 1000 MG/100 ML 100 ML IV ONE (09:41)
--- NOTE | 2017-08-28 11:36 | HHI.PR ---
cc: Aashish Leigh MD Immediate Post Op Note Procedure Date: Aug 28, 2017 Pre Op Diagnosis: Severe PAD, aortoiliac occlusive disease Post Op Diagnosis: Same Surgeon: Aashish Leigh Fur Mixer(s): Aashish Mcdermott Procedure: 1. R ax-fem-fem with 8mm ringed PTFE 2. B PFA TEA with patch endarterectomy Findings: Severe occlusive disease Additional Information: strong pedal signals after reperfusion Complications: none Specimen(s) removed: none for pathology Estimated blood loss: 450mL Anesthesia: General Drains: None Fluids: 2900mL IVF Urinary Output (mLs): 750 Patient to: PACU Patient Condition: Good Implant/Devices: SEE IMPLANT LOG (if applicable) Date/Time of Procedure: SEE SURGICAL CARE RECORD Aashish Leigh MD Aug 28, 2017 11:36
[2017-08-28] MEDS ORDERED: LACTULOSE SYRUP 20 GM/30 ML CUP PO PRN (11:45)
[2017-08-28] MEDS ORDERED: BISACODYL 10 MG SUPP RECTAL PRN (11:45)
[2017-08-28] MEDS ORDERED: NALOXONE HCL 0.4 MG/ML AMP IV PUSH PRN (11:45)
[2017-08-28] MEDS ORDERED: SODIUM CHLORID 0.9% 500 ML INJ 500 ML IV ONE (12:00)
[2017-08-28] MEDS ORDERED: ceFAZolin INJ 1,000 MG VIAL IV ONE (12:00)
[2017-08-28] MEDS ORDERED: NORMOSOL R INJ 3,000 ML IV ONE (12:00)
[2017-08-28] MEDS ORDERED: ONDANSETRON HCL 4 MG/2 ML VIAL IV ONE (12:00)
[2017-08-28] MEDS ORDERED: LIDOCAINE HCL 1% PF 5 ML SYRINGE OTHER ONE (12:00)
[2017-08-28] MEDS ORDERED: ESMOLOL HCL 100 MG/10 ML VIAL IV ONE (12:00)
[2017-08-28] MEDS ORDERED: PHENYLEPH/NS 1000 MCG/10 ML SYR IV ONE (12:00)
[2017-08-28] MEDS ORDERED: ROCURONIUM INJ 50 MG/5 ML SYRINGE IV PUSH ONE (12:00)
[2017-08-28] MEDS ORDERED: PHENYLEPHRINE HCL 10 MG/ML VIAL IV ONE (12:00)
[2017-08-28] MEDS ORDERED: DEXAMETHASONE SOD PHOS 4 MG/ML VIAL IV ONE (12:00)
[2017-08-28] MEDS ORDERED: PROPOFOL 200 MG/20 ML AMP IV ONE (12:00)
[2017-08-28] MEDS ORDERED: ePHEDrine/NS 25 MG/5 ML SYRINGE IV ONE (12:00)
[2017-08-28] MEDS ORDERED: SODIUM CHLOR 0.9% 250 ML INJ 250 ML IV ONE (12:00)
[2017-08-28] MEDS ORDERED: DO NOT ADM ANY ANTICOAGULANT DRUGS PRN (12:06)
[2017-08-28] MEDS ORDERED: MIDAZOLAM HCL 2 MG/2 ML VIAL ONE (12:15)
[2017-08-28] MEDS ORDERED: MORPHINE SULFATE 4 MG/ML INJ ONE (12:15)
[2017-08-28] MEDS: MORPHINE SULFATE 30 MG/30 ML PCA IV SCH (13:11)
[2017-08-28] MEDS: LACTATED RINGER'S 1000 ML INJ 1,000 ML IV SCH (13:14)
[2017-08-28] MEDS: PCA - TOTAL MG MORPHINE DELIVERED PER SHIFT SCH ×2 (14:00→22:00)
--- NOTE | 2017-08-28 14:15 | PD.VS.PN ---
Subjective POD #: 0 Procedure(s): R ax-fem-fem with 8mm ringed PTFE B PFA TEA with patch endarterectomy Subjective/Hospital Course Pt awake in NAD S/P revascularization Pain controlled Pt doing well Pt w/o complaints and reports improved pain (0/10) to B LE LE Warm w/ motor intact Prevena wound vacs to B groins w/o hematoma or swelling Objective Vitals/I&O Date Time Temp Pulse Resp B/P (MAP) Pulse Ox O2 Delivery O2 Flow Rate FiO2 08/28/17 13:15 16 08/28/17 13:12 100 08/28/17 13:12 98.2 90 16 113/63 (80) 97 Arterial Line 08/28/17 13:11 18 08/28/17 12:00 98.1 90 20 102/63 (76) 98 Nasal Cannula 2 105/52 (69) 08/28/17 06:34 97.0 91 18 164/84 (110) 100 08/28/17 08/28/17 08/28/17 07:00 15:00 23:00 Intake Total 2900 ml Output Total 1200 ml Balance 1700 ml Exam: GENERAL:A&OX3,NAD,GCS15 SKIN: B LE Warm and dry w/ motor intact Incision to R chest wall intact with surgical glue closure/ slight ecchymosis present estiven wound B groins w/ Prevena wound vac/No hematoma or swelling GASTROINTESTINAL: Abdomen soft, non-tender, nondistended. MUSCULOSKELETAL: No cyanosis, or edema. Strong multiphasic Right DP/PT Strong multiphasic Left DP/PT Assessment and Plan Assessment: (1) PVD (peripheral vascular disease) with claudication Plan 56/F s/p revascularization POD 0 Pt doing well Pt w/o pain and reported improved LE discomfort Plan Pain control Continue neurovascular checks Obdulia Staton NP [facility]/[employer] [phone] Discharge Planning 2-3 days Obdulia Staton Aug 28, 2017 14:15
[2017-08-28] MEDS: metFORMIN HCL 500 MG TAB PO SCH (17:03)
--- NOTE | 2017-08-28 17:16 | MP ---
cc: Aashish Leigh MD DATE OF OPERATION: 08/28/2017 PREOPERATIVE DIAGNOSIS: Peripheral vascular disease with aortoiliac occlusion. POSTOPERATIVE DIAGNOSIS: Peripheral vascular disease with aortoiliac occlusion. PROCEDURE PERFORMED: 1. Right axillofemoral femorofemoral graft. 2. Right profunda endarterectomy and patch angioplasty with bovine pericardium. 3. Left profunda endarterectomy and patch angioplasty with bovine pericardium. ATTENDING SURGEON: Aashish Leigh MD STAKE DRIVER: Aashish Mcdermott. ANESTHESIA: General. INDICATIONS FOR PROCEDURE: Ms. Oliveira is a 56-year-old lady who has infrarenal aortic occlusion and she had an attempted an aortobifemoral bypass but her aorta was too calcified to clamp and she was taken to the operating room for an extra-anatomic bypass. DESCRIPTION OF PROCEDURE: Informed consent was obtained from the patient. She was taken to the operating room and placed supine on the operating table. An appropriate timeout was taken to ensure the patient's identity, the operative site and the planned procedure. The administration of 1 gram of Ancef was initiated prior to skin incision and will be discontinued after a single preoperative dose. Everyone in the room agreed the timeout and we proceeded. She was prepped from her chin to her toes. Her previous groin incisions were opened with a 10 blade, carried down through subcutaneous tissue with electrocautery. The common femoral, profunda femoris, and superficial femoral artery were all dissected free and vessel loops were placed around these. An incision was made below the right collarbone, carried down through subcutaneous tissue with electrocautery. The axillary subclavian artery was identified and dissected free and encircled with a vessel loop. A tunnel was then created between the 2 femoral incisions in the subfascial plane and then a tunnel was created from the right shoulder down to the right groin. An 8 mm ringed PTFE was passed through this tunnel. The patient was systemically heparinized and throughout the remainder of the case the ACT was kept greater than 250 with additional heparin re-boluses. Proximal and distal control of the axillary artery was obtained with fundal clamps and then a longitudinal arteriotomy was made with an 11 blade, extended with Jerry scissors. The 8 mm PTFE was spatulated and sewn end-to-side with running 5-0 Perris Prolene suture. At the completion, it was flushed and noted to be hemostatic. This wound was temporarily packed. Proximal and distal control was obtained of the right groin including the common femoral artery, profunda and superficial femoral artery. A longitudinal arteriotomy was made extending from the proximal superficial femoral artery all the way up to the mid-common femoral artery. The artery was endarterectomized and the profunda was endarterectomized. Bovine pericardial patch was brought up onto the field and sewn on with running 6-0 Prolene suture. The patch was then incised longitudinally and the 8 mm PTFE from the right shoulder was spatulated and sewn end-to-side to the patch with running 6-0 Prolene suture. At the completion it was flushed, noted to be hemostatic and with the clamps released there was a nice palpable pulse in both the profunda and the SFA. Clamps were then reapplied on the graft and a longitudinal graftotomy was made on the distal aspect of the ax-fem. This was extended using Sunset scissors. Through the fem-fem tunnel, the remainder 8 mm Perris-Flakito was then passed taking caution not to twist it. It was then spatulated and sewn end-to-side to the medial aspect of the ax-fem with running 6-0 Prolene suture. At the completion it was flushed and noted to be hemostatic. The right groin clamps were released and the fem-fem was then clamped on the left hand side. Proximal and distal control of the left groin knik arteries were obtained with profunda clamps, including the common femoral artery, profunda and SFA. A longitudinal arteriotomy was made from the SFA extending all the way up to the common femoral artery and the profunda, SFA and common femoral artery were all endarterectomized. A bovine pericardial patch was then brought up on the field and sewn on with running 6-0 Prolene suture. The patch was then incised longitudinally and the fem-fem graft was spatulated and sewn end-to-side with running 6-0 Prolene suture. At the completion, it was flushed and noted to be hemostatic. There were excellent Doppler signals in both feet. The heparin was reversed with protamine. The wounds were infiltrated with Marcaine, made hemostatic and closed with 2-0 Polysorb in 2 layers, 3-0 Polysorb and 4-0 Monocryl. The sponge and needle counts were correct at the end of the case. I was present and scrubbed and performed the entire procedure. MD PATRICK Cobos/NELLY , 04:28 PM , 05:15 PM
[2017-08-28] MEDS: FAMOTIDINE 20 MG TAB PO SCH (21:50)
[2017-08-28] MEDS: ATORVASTATIN 40 MG TAB PO SCH (21:50)
[2017-08-28] MEDS: DOCUSATE SODIUM 50 MG/SENNA 8.6 MG TAB PO SCH (21:50)
[2017-08-29] VITALS (26 sets, daily range): BP systolic 102–132; BP diastolic 50–60; PULSE 70–100; RESP 16–18; TEMP 97.5–98.7; O2SAT 94–98
[2017-08-29 05:21] LABS: HEMATOCRIT 24.2 % (35.0-46.0); HEMOGLOBIN 7.9 GM/DL (11.6-15.3); MEAN CELL VOLUME 90.5 FL (80.0-100.0); MEAN CORPUSCULAR HEMOGLOBIN 29.7 PG (27.0-34.0); MEAN CORPUSCULAR HGB CONC 32.8 % (32.0-36.0); MEAN PLATELET VOLUME 8.6 FL (7.0-11.0); PLATELET COUNT 383 TH/MM3 (150-450); RED BLOOD COUNT 2.67 MIL/MM3 (4.00-5.30); RED CELL DISTRIBUTION WIDTH 14.3 % (11.6-17.2); WHITE BLOOD COUNT 12.6 TH/MM3 (4.0-11.0)
[2017-08-29 05:40] LABS: BICARBONATE 27.3 MEQ/L (21.0-32.0); CALCIUM 8.7 MG/DL (8.5-10.1); CREATININE 0.71 MG/DL (0.50-1.00)
[2017-08-29] MEDS: PCA - TOTAL MG MORPHINE DELIVERED PER SHIFT SCH ×3 (06:00→21:38)
--- NOTE | 2017-08-29 07:59 | PD.VS.PN ---
Subjective POD #: 1 Procedure(s): R ax-fem-fem with 8mm ringed PTFE B PFA TEA with patch endarterectomy Subjective/Hospital Course complains of soreness but feet feel much better. 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 Objective Vitals/I&O Date Time Temp Pulse Resp B/P (MAP) Pulse Ox O2 Delivery O2 Flow Rate FiO2 08/29/17 07:10 98.7 80 16 132/60 (84) 96 08/29/17 07:10 80 08/29/17 06:00 86 08/29/17 06:00 86 08/29/17 06:00 16 08/29/17 06:00 16 08/29/17 05:00 86 08/29/17 04:00 86 08/29/17 03:00 80 08/29/17 03:00 97.5 70 16 103/58 (73) 98 08/29/17 02:00 89 08/29/17 01:00 80 08/29/17 00:00 82 08/28/17 23:00 83 08/28/17 23:00 97.4 82 16 95/60 (72) 98 08/28/17 22:00 16 08/28/17 22:00 16 08/28/17 22:00 87 08/28/17 21:00 84 08/28/17 20:00 88 08/28/17 19:00 87 08/28/17 19:00 97.1 92 16 95/57 (70) 97 08/28/17 18:02 81 08/28/17 17:05 94 08/28/17 16:09 98 08/28/17 15:11 98.0 99 16 119/62 (81) 97 08/28/17 15:11 95 08/28/17 14:15 101 08/28/17 14:00 18 08/28/17 14:00 18 08/28/17 13:15 16 08/28/17 13:12 100 08/28/17 13:12 98.2 90 16 113/63 (80) 97 Arterial Line 08/28/17 13:11 18 08/28/17 12:45 98.1 93 20 106/58 (74) 98 Arterial Line 08/28/17 12:30 95 20 108/53 (71) 97 Nasal Cannula 2 08/28/17 12:15 88 20 108/55 (72) 97 Nasal Cannula 2 08/28/17 12:00 98.1 90 20 102/63 (76) 98 Nasal Cannula 2 105/52 (69) 08/29/17 08/29/17 08/29/17 07:00 15:00 23:00 Intake Total 240 ml Output Total 600 ml Balance -360 ml Exam: resting comfortably, no distress R axillary incision slightly full but not tense. minimal ecchymoses R chest wall B groin Prevena in place and groins soft Pulses: palpable pedal pulses Laboratory Laboratory Tests Test 08/29/17 04:37 08/29/17 04:38 White Blood Count 12.6 Red Blood Count 2.67 Hemoglobin 7.9 Hematocrit 24.2 Mean Corpuscular Volume 90.5 Mean Corpuscular Hemoglobin 29.7 Mean Corpuscular Hemoglobin Concent 32.8 Red Cell Distribution Width 14.3 Platelet Count 383 Mean Platelet Volume 8.6 Blood Urea Nitrogen 11 Creatinine 0.71 Random Glucose 108 Calcium Level 8.7 Sodium Level 141 Potassium Level 4.6 Chloride Level 105 Carbon Dioxide Level 27.3 Anion Gap 9 Estimat Glomerular Filtration Rate 85 Assessment and Plan Assessment: (1) PVD (peripheral vascular disease) with claudication Plan POD#1 s/p ax-fem-fem with b groin reconstructions palpable pulses 1. OOB TC and PT 2. 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 D/C [place] this morning 4. Continue ASA/statin 5. Recheck CBC tomorrow Discharge Planning 2-3 days from now Aashish Leigh MD Aug 29, 2017 07:59
[2017-08-29] MEDS: MAGNESIUM HYDROXIDE SUSP 30 ML CUP PO PRN (08:45)
[2017-08-29] MEDS: DOCUSATE SODIUM 50 MG/SENNA 8.6 MG TAB PO SCH ×2 (08:46→21:38)
[2017-08-29] MEDS: AMITRIPTYLINE HCL 50 MG TAB PO SCH (08:46)
[2017-08-29] MEDS: FAMOTIDINE 20 MG TAB PO SCH ×2 (08:47→21:38)
[2017-08-29] MEDS: metFORMIN HCL 500 MG TAB PO SCH ×2 (08:47→18:13)
[2017-08-29] MEDS: ASPIRIN 325 MG TAB PO SCH (08:47)
[2017-08-29] MEDS: SENNOSIDES 8.6 MG TAB PO PRN (08:48)
[2017-08-29] MEDS: MULTIVITAMINS/MINERALS THERAPEUTIC TAB PO SCH (08:48)
[2017-08-29] MEDS: SERTRALINE HCL 50 MG TAB PO SCH (08:52)
[2017-08-29] MEDS: VENLAFAXINE HCL XR 75 MG CAP PO SCH (08:52)
[2017-08-29] MEDS: MULTIVITAMINS/IRON/MINERALS CHEWABLE TAB CHEW SCH (09:00)
[2017-08-29] MEDS ORDERED: ENOXAPARIN SODIUM 40 MG/0.4 ML SYRINGE SQ SCH (09:15)
[2017-08-29] MEDS ORDERED: ENOXAPARIN SODIUM 30 MG/0.3 ML SYRINGE SQ SCH (11:00)
[2017-08-29] MEDS: LACTATED RINGER'S 1000 ML INJ 1,000 ML IV SCH (12:20)
[2017-08-29] MEDS: MORPHINE SULFATE 30 MG/30 ML PCA IV SCH (18:16)
[2017-08-29] MEDS: ATORVASTATIN 40 MG TAB PO SCH (21:38)
[2017-08-30] VITALS (28 sets, daily range): BP systolic 75–110; BP diastolic 50–61; PULSE 81–101; RESP 16–20; TEMP 97.4–99; O2SAT 94–100
[2017-08-30 05:33] LABS: HEMATOCRIT 22.5 % (35.0-46.0); HEMOGLOBIN 7.6 GM/DL (11.6-15.3); MEAN CELL VOLUME 89.7 FL (80.0-100.0); MEAN CORPUSCULAR HEMOGLOBIN 30.3 PG (27.0-34.0); MEAN CORPUSCULAR HGB CONC 33.8 % (32.0-36.0); PLATELET COUNT 322 TH/MM3 (150-450); RED BLOOD COUNT 2.51 MIL/MM3 (4.00-5.30); RED CELL DISTRIBUTION WIDTH 14.2 % (11.6-17.2); WHITE BLOOD COUNT 13.6 TH/MM3 (4.0-11.0)
[2017-08-30] MEDS: PCA - TOTAL MG MORPHINE DELIVERED PER SHIFT SCH (06:00)
[2017-08-30] MEDS ORDERED: ONDANSETRON ODT 4 MG TAB PO PRN (07:30)
[2017-08-30] MEDS ORDERED: MORPHINE SULFATE 4 MG/ML INJ IV PUSH PRN (07:30)
[2017-08-30] MEDS ORDERED: HYDROmorphone HCL 2 MG TAB PO PRN (07:30)
--- NOTE | 2017-08-30 07:31 | PD.VS.PN ---
Subjective POD #: 2 Procedure(s): R ax-fem-fem with 8mm ringed PTFE B PFA TEA with patch endarterectomy Subjective/Hospital Course 56/F s/p R ax-fem-fem Incisions intact Pt c/o vomiting episode last night Pt denied nausea, vomiting or abdominal pain this am Pt continues to complain of soreness at the incision lines (B groins/ R chest region) Pt reported her B LE feels much better. Objective Vitals/I&O Date Time Temp Pulse Resp B/P (MAP) Pulse Ox O2 Delivery O2 Flow Rate FiO2 08/30/17 06:00 94 08/30/17 06:00 16 08/30/17 06:00 18 08/30/17 05:00 94 08/30/17 04:00 89 08/30/17 03:00 98.1 94 16 110/61 (77) 97 08/30/17 03:00 90 08/30/17 02:00 81 08/30/17 01:00 84 08/30/17 00:00 83 08/29/17 23:00 90 08/29/17 23:00 98.0 90 16 103/57 (72) 97 08/29/17 22:00 16 08/29/17 22:00 92 08/29/17 21:38 18 08/29/17 21:00 84 08/29/17 20:00 83 08/29/17 19:00 89 08/29/17 19:00 97.9 80 18 105/59 (74) 98 08/29/17 18:16 16 08/29/17 18:00 86 08/29/17 17:00 96 08/29/17 16:00 82 08/29/17 15:30 97.8 79 18 102/50 (67) 94 08/29/17 15:30 79 08/29/17 15:00 80 08/29/17 14:00 16 08/29/17 14:00 90 08/29/17 14:00 16 08/29/17 13:00 88 08/29/17 12:00 80 08/29/17 11:30 80 08/29/17 11:30 98.4 80 18 104/56 (72) 98 08/29/17 11:00 78 08/29/17 10:00 82 08/29/17 09:00 100 08/29/17 08:00 96 08/30/17 08/30/17 08/30/17 07:00 15:00 23:00 Intake Total 878 ml Output Total 800 ml Balance 78 ml Exam: GENERAL:A&OX3,NAD,GCS15 SKIN: B LE Warm and dry w/ motor intact Incision to R chest wall intact with surgical glue closure/ improving ecchymosis estiven wound B groins w/ Prevena wound vac/No hematoma or swelling GASTROINTESTINAL: Abdomen soft, non-tender, nondistended. MUSCULOSKELETAL: No cyanosis, or edema. Strong multiphasic Right DP/PT Strong multiphasic Left DP/PT Palpable R/L PT Laboratory Laboratory Tests Test 08/30/17 04:53 White Blood Count 13.6 Red Blood Count 2.51 Hemoglobin 7.6 Hematocrit 22.5 Mean Corpuscular Volume 89.7 Mean Corpuscular Hemoglobin 30.3 Mean Corpuscular Hemoglobin Concent 33.8 Red Cell Distribution Width 14.2 Platelet Count 322 Mean Platelet Volume 9.0 Assessment and Plan Assessment: (1) PVD (peripheral vascular disease) with claudication Plan POD#2 s/p ax-fem-fem with b groin reconstructions palpable pulses Plan Continue PT OOB TC/ambulate D/C [employer] PL[employer]NER Continue ASA/statin Checked am labs- Give 2U PRBC Recheck CBC tomorrow am Zofran ordered PRN for nausea Obdulia Staton NP [facility]/[employer] [phone] Discharge Planning 2-3 days from now Obdulia Staton Aug 30, 2017 07:31
[2017-08-30] MEDS: MULTIVITAMINS/IRON/MINERALS CHEWABLE TAB CHEW SCH (08:24)
[2017-08-30] MEDS: VENLAFAXINE HCL XR 75 MG CAP PO SCH (08:24)
[2017-08-30] MEDS: AMITRIPTYLINE HCL 50 MG TAB PO SCH (08:25)
[2017-08-30] MEDS: DOCUSATE SODIUM 50 MG/SENNA 8.6 MG TAB PO SCH ×2 (08:25→21:10)
[2017-08-30] MEDS: MULTIVITAMINS/MINERALS THERAPEUTIC TAB PO SCH (08:25)
[2017-08-30] MEDS: metFORMIN HCL 500 MG TAB PO SCH ×2 (08:25→17:36)
[2017-08-30] MEDS: FAMOTIDINE 20 MG TAB PO SCH ×2 (08:25→21:10)
[2017-08-30] MEDS: SERTRALINE HCL 50 MG TAB PO SCH (08:25)
[2017-08-30] MEDS: ASPIRIN 325 MG TAB PO SCH (08:26)
[2017-08-30] MEDS: ENOXAPARIN SODIUM 40 MG/0.4 ML SYRINGE SQ SCH (11:00)
[2017-08-30] MEDS: ATORVASTATIN 40 MG TAB PO SCH (21:10)
[2017-08-31] VITALS (23 sets, daily range): BP systolic 83–114; BP diastolic 52–66; PULSE 75–107; RESP 16–18; TEMP 98.3–98.8; O2SAT 93–98
[2017-08-31 05:02] LABS: HEMATOCRIT 33.1 % (35.0-46.0); HEMOGLOBIN 11.1 GM/DL (11.6-15.3); MEAN CELL VOLUME 86.4 FL (80.0-100.0); MEAN CORPUSCULAR HEMOGLOBIN 29.1 PG (27.0-34.0); MEAN CORPUSCULAR HGB CONC 33.6 % (32.0-36.0); MEAN PLATELET VOLUME 9.1 FL (7.0-11.0); PLATELET COUNT 300 TH/MM3 (150-450); RED BLOOD COUNT 3.83 MIL/MM3 (4.00-5.30); WHITE BLOOD COUNT 14.6 TH/MM3 (4.0-11.0)
[2017-08-31] MEDS: MULTIVITAMINS/IRON/MINERALS CHEWABLE TAB CHEW SCH (09:00)
[2017-08-31] MEDS: MULTIVITAMINS/MINERALS THERAPEUTIC TAB PO SCH (09:36)
[2017-08-31] MEDS: ENOXAPARIN SODIUM 40 MG/0.4 ML SYRINGE SQ SCH (09:36)
[2017-08-31] MEDS: FAMOTIDINE 20 MG TAB PO SCH ×2 (09:36→20:49)
[2017-08-31] MEDS: ASPIRIN 325 MG TAB PO SCH (09:37)
[2017-08-31] MEDS: DOCUSATE SODIUM 50 MG/SENNA 8.6 MG TAB PO SCH ×2 (09:37→20:49)
[2017-08-31] MEDS: SERTRALINE HCL 50 MG TAB PO SCH (09:37)
[2017-08-31] MEDS: metFORMIN HCL 500 MG TAB PO SCH ×2 (09:37→17:07)
[2017-08-31] MEDS: AMITRIPTYLINE HCL 50 MG TAB PO SCH (09:37)
[2017-08-31] MEDS: VENLAFAXINE HCL XR 75 MG CAP PO SCH (09:38)
[2017-08-31] MEDS: SENNOSIDES 8.6 MG TAB PO PRN (09:41)
[2017-08-31] MEDS: MAGNESIUM HYDROXIDE SUSP 30 ML CUP PO PRN (09:41)
--- NOTE | 2017-08-31 10:38 | PD.VS.PN ---
Subjective POD #: 3 Procedure(s): R ax-fem-fem with 8mm ringed PTFE B PFA TEA with patch endarterectomy Subjective/Hospital Course 56/F s/p R ax-fem-fem Incisions intact Pt denied nausea, vomiting or abdominal pain Pt continues to complain of soreness at the incision lines (B groins/ R chest region) R chest incision intact with swelling Pt w/ right sided ecchymosis (lateral aspect of chest) LE warm w/ motor intact Palpable Distal pulses present Objective Vitals/I&O Date Time Temp Pulse Resp B/P (MAP) Pulse Ox O2 Delivery O2 Flow Rate FiO2 08/31/17 07:41 98.3 92 18 114/58 (76) 98 08/31/17 06:04 82 08/31/17 05:20 87 08/31/17 04:48 83 08/31/17 03:50 98.3 94 107/66 (80) 93 08/31/17 03:49 94 08/31/17 02:23 88 08/31/17 01:17 94 08/31/17 00:08 107 08/31/17 00:04 98.8 93 108/57 (74) 93 08/30/17 23:51 96 08/30/17 23:41 18 08/30/17 22:41 91 08/30/17 21:05 94 08/30/17 20:14 93 08/30/17 19:00 92 08/30/17 19:00 99.0 92 90/51 (64) 95 08/30/17 18:00 93 08/30/17 17:00 93 08/30/17 16:00 95 08/30/17 15:00 93 08/30/17 15:00 97.9 95 20 100/59 (73) 95 08/30/17 14:00 96 08/30/17 13:30 97.9 101 20 85/61 96 08/30/17 13:14 97.4 100 20 81/52 98 08/30/17 13:00 98 08/30/17 12:00 101 08/30/17 12:00 98/55 (69) 08/30/17 11:00 98.4 87 20 83/50 (61) 94 08/30/17 11:00 88 08/30/17 10:55 98.6 84 20 75/50 98 08/30/17 10:39 98.4 99 18 83/50 100 08/31/17 08/31/17 08/31/17 07:00 15:00 23:00 Intake Total 360 ml Output Total 1150 ml Balance -790 ml Exam: GENERAL:A&OX3,NAD,GCS15 SKIN: B LE Warm and dry w/ motor intact Incision to R chest wall intact with surgical glue closure/ improving ecchymosis estiven wound/ swelling present Right chest region (lateral aspect) w/ ecchymosis B groins w/ Prevena wound vac/No hematoma or swelling GASTROINTESTINAL: Abdomen soft, non-tender, nondistended. MUSCULOSKELETAL: No cyanosis, or edema. Strong multiphasic Right DP/PT Strong multiphasic Left DP/PT Palpable R/L DP Laboratory Laboratory Tests Test 08/31/17 04:04 White Blood Count 14.6 Red Blood Count 3.83 Hemoglobin 11.1 Hematocrit 33.1 Mean Corpuscular Volume 86.4 Mean Corpuscular Hemoglobin 29.1 Mean Corpuscular Hemoglobin Concent 33.6 Red Cell Distribution Width 16.0 Platelet Count 300 Mean Platelet Volume 9.1 Assessment and Plan Assessment: (1) PVD (peripheral vascular disease) with claudication Plan POD#3 S/p ax-fem-fem with b groin reconstructions Pt continues w/ palpable distal pulses Plan Continue PT OOB TC/ambulate Continue ASA/Statin Am labs reviewed D/C planning Obdulia Staton NP [email or web address] [phone] Discharge Planning Tomorrow am Obdulia Staton Aug 31, 2017 10:38
[2017-08-31] MEDS: ATORVASTATIN 40 MG TAB PO SCH (20:49)
[2017-09-01] VITALS (9 sets, daily range): BP systolic 113–123; BP diastolic 59–64; PULSE 78–106; RESP 16; TEMP 97.7–98.5; O2SAT 93–95
[2017-09-01] MEDS: MULTIVITAMINS/IRON/MINERALS CHEWABLE TAB CHEW SCH (09:00)
[2017-09-01] MEDS ORDERED: OXYC1CAP PO (09:11)
--- NOTE | 2017-09-01 09:19 | PD.VS.PN ---
Subjective POD #: 4 Procedure(s): R ax-fem-fem with 8mm ringed PTFE B PFA TEA with patch endarterectomy Subjective/Hospital Course 56/F s/p R ax-fem-fem Incisions intact Pt c/o soreness at the incision lines (B groins/ R chest region) R chest incision intact with improved swelling Pt w/ right sided ecchymosis (lateral aspect of chest) - IMPROVED LE warm w/ motor intact Palpable Distal pulses present Objective Vitals/I&O Date Time Temp Pulse Resp B/P (MAP) Pulse Ox O2 Delivery O2 Flow Rate FiO2 09/01/17 07:15 98.5 85 16 113/59 (77) 95 09/01/17 07:15 85 09/01/17 04:00 83 09/01/17 04:00 97.7 92 16 123/64 (83) 95 09/01/17 00:00 78 09/01/17 00:00 97.9 95 16 119/60 (79) 93 08/31/17 20:00 98.3 89 18 91/56 (68) 97 08/31/17 20:00 84 08/31/17 18:00 90 08/31/17 17:00 90 08/31/17 15:30 79 08/31/17 15:30 98.5 79 16 83/52 (62) 94 08/31/17 15:00 78 08/31/17 14:00 92 08/31/17 13:00 90 08/31/17 12:00 76 08/31/17 11:45 98.4 75 16 97 08/31/17 11:00 106 08/31/17 10:00 86 09/01/17 09/01/17 09/01/17 07:00 15:00 23:00 Intake Total 480 ml Output Total 700 ml Balance -220 ml Exam: GENERAL:A&OX3,NAD,GCS15 SKIN: B LE Warm and dry w/ motor intact Incision to R chest wall intact with surgical glue closure/ improving ecchymosis estiven wound/ IMPROVED swelling present Right chest region (lateral aspect) w/ ecchymosis -improved B groins w/ Prevena wound vac/No hematoma or swelling GASTROINTESTINAL: Abdomen soft, non-tender, nondistended. MUSCULOSKELETAL: No cyanosis, or edema. Palpable R/L DP Assessment and Plan Assessment: (1) PVD (peripheral vascular disease) with claudication Plan POD#4 S/p ax-fem-fem with b groin reconstructions Pt continues w/ palpable distal pulses Plan Pt clear for d/c Arranged out pt f/u LEAVE wound vacs intact- will remove out pt on MONDAY Continue ASA/Statin Obdulia Staton NP [facility]/[employer] [phone] Discharge Planning Today Obdulia StatonP Sep 01, 2017 09:19
--- NOTE | 2017-09-01 09:21 | PD.VS.DC ---
Discharge Summary Admission Date: Aug 28, 2017 at 05:42 Discharge Date: Sep 01, 2017 Admission Diagnosis: (1) PVD (peripheral vascular disease) with claudication Discharge Diagnosis: (1) PVD (peripheral vascular disease) with claudication ICD Codes: I73.9 - Peripheral vascular disease, unspecified Brief History from admission 56/F Pt had attempt at ABF but her aorta was a calcific pipe that couldn't be safely cross-clamped. She recovered well and now presents for extra-anatomic bypass. No f/c or other symptoms that would preclude OR. Procedure(s): R ax-fem-fem with 8mm ringed PTFE B PFA TEA with patch endarterectomy Significant Findings Laboratory Tests Test 08/30/17 04:53 08/31/17 04:04 White Blood Count 13.6 TH/MM3 (4.0-11.0) 14.6 TH/MM3 (4.0-11.0) Red Blood Count 2.51 MIL/MM3 (4.00-5.30) 3.83 MIL/MM3 (4.00-5.30) Hemoglobin 7.6 GM/DL (11.6-15.3) 11.1 GM/DL (11.6-15.3) Hematocrit 22.5 % (35.0-46.0) 33.1 % (35.0-46.0) Hospital Course: 56/F Pt had attempt at ABF but her aorta was a calcific pipe that couldn't be safely cross-clamped. She recovered well and now presents for extra-anatomic bypass. No f/c or other symptoms that would preclude OR. PT S/P R ax-fem-fem with 8mm ringed PTFE/B PFA TEA with patch endarterectomy POD 0 Pt awake in NAD S/P revascularization Pain controlled Pt doing well Pt w/o complaints and reports improved pain (0/10) to B LE LE Warm w/ motor intact Prevena wound vacs to B groins w/o hematoma or swelling POD 1 complains of soreness but feet feel much better. [employer] working for pain control POD 2 Incisions intact Pt c/o vomiting episode last night Pt denied nausea, vomiting or abdominal pain this am Pt continues to complain of soreness at the incision lines (B groins/ R chest region) Pt reported her B LE feels much better. POD 3 Incisions intact Pt denied nausea, vomiting or abdominal pain Pt continues to complain of soreness at the incision lines (B groins/ R chest region) R chest incision intact with swelling Pt w/ right sided ecchymosis (lateral aspect of chest) LE warm w/ motor intact Palpable Distal pulses present POD 4 Incisions intact Pt c/o soreness at the incision lines (B groins/ R chest region) R chest incision intact with improved swelling Pt w/ right sided ecchymosis (lateral aspect of chest) - IMPROVED LE warm w/ motor intact Palpable Distal pulses present Pt clear for d/c Arranged out pt f/u LEAVE wound vacs intact- will remove out pt on MONDAY Continue ASA/Statin E -Forcse checked- No recent activity Prescribed appropriate post operative pain management Allergies Coded Allergies Type Severity Reaction Last Updated Verified albuterol Allergy Severe SOB 08/28/17 No epinephrine Allergy Severe SOB 08/28/17 No Uncoded Allergies Type Severity Reaction Last Updated Verified DRISTAN Allergy Severe SOB 07/02/12 08/30/17 08/30/17 08/31/17 08/31/17 09/01/17 09/01/17 06:00 18:00 06:00 18:00 06:00 18:00 Intake Total 878 ml 1800 ml 360 ml 1080 ml 480 ml Output Total 800 ml 850 ml 1150 ml 800 ml 700 ml Balance 78 ml 950 ml -790 ml 280 ml -220 ml Intake Oral 410 ml 960 ml 360 ml 1080 ml 480 ml IV Total 468 ml Packed Cells 800 ml Blood Product IV Normal Saline Flush 40 ml Output Urine Total 800 ml 850 ml 1150 ml 800 ml 700 ml # Bowel Movements 0 0 0 0 Laboratory Tests Test 08/30/17 04:53 08/31/17 04:04 White Blood Count 13.6 TH/MM3 14.6 TH/MM3 Red Blood Count 2.51 MIL/MM3 3.83 MIL/MM3 Hemoglobin 7.6 GM/DL 11.1 GM/DL Hematocrit 22.5 % 33.1 % Mean Corpuscular Volume 89.7 FL 86.4 FL Mean Corpuscular Hemoglobin 30.3 PG 29.1 PG Mean Corpuscular Hemoglobin Concent 33.8 % 33.6 % Red Cell Distribution Width 14.2 % 16.0 % Platelet Count 322 TH/MM3 300 TH/MM3 Mean Platelet Volume 9.0 FL 9.1 FL Orders Procedure Category Date Status Time Blood Product PAUL 08/30/17 In Process Administration 06:31 Cbc No Diff, Includes LAB 08/31/17 Complete Plts 06:00 Oxycodone (Roxicodone) MED 08/30/17 In Process 07:30 Hydromorphone MED 08/30/17 In Process (Dilaudid) 07:30 Morphine Inj MED 08/30/17 In Process (Morphine Inj) 07:30 Ondansetron Odt MED 08/30/17 In Process (Zofran Odt) 07:30 Red Blood Cells (Rbc) BBK 08/30/17 Complete 10:08 Sodium Chlor 0.9% 250 MED 08/28/17 Complete Ml Inj (Ns 250 Ml 12:00 Sodium Chlorid 0.9% MED 08/28/17 Complete 500 Ml Inj (Ns 500 M 12:00 Normosol R Inj MED 08/28/17 Complete (Normosol R Inj) 12:00 Lidocaine Pf 1% Inj MED 08/28/17 Complete (Xylocaine-Mpf 1% In 12:00 Rocuronium Inj MED 08/28/17 Complete (Zemuron Inj) 12:00 Phenyleph/Ns 1000 MED 08/28/17 Complete Mcg/10ml Syr (Neosynep 12:00 Phenylephrine Inj MED 08/28/17 Complete (Neosynephrine Inj) 12:00 Ephedrine/Ns 25 Mg/5 MED 08/28/17 Complete Ml Syr (Ephedrine/N 12:00 Esmolol Bolus Inj MED 08/28/17 Complete (Brevibloc Bolus Inj) 12:00 Dexamethasone Inj MED 08/28/17 Complete (Decadron Inj) 12:00 Ondansetron Inj MED 08/28/17 Complete (Zofran Inj) 12:00 Cefazolin Inj (Ancef MED 08/28/17 Complete Inj) 12:00 Propofol 200 Mg/20 Ml MED 08/28/17 Complete Inj (Diprivan 200 12:00 Attending Discharge DISCHARGE 09/01/17 Transmitted Order Vital Signs Date Time Temp Pulse Resp B/P (MAP) Pulse Ox O2 Delivery O2 Flow Rate FiO2 09/01/17 07:15 98.5 85 16 113/59 (77) 95 09/01/17 07:15 85 09/01/17 04:00 83 09/01/17 04:00 97.7 92 16 123/64 (83) 95 09/01/17 00:00 78 09/01/17 00:00 97.9 95 16 119/60 (79) 93 08/31/17 20:00 98.3 89 18 91/56 (68) 97 08/31/17 20:00 84 08/31/17 18:00 90 08/31/17 17:00 90 08/31/17 15:30 79 08/31/17 15:30 98.5 79 16 83/52 (62) 94 08/31/17 15:00 78 08/31/17 14:00 92 08/31/17 13:00 90 08/31/17 12:00 76 08/31/17 11:45 98.4 75 16 97 08/31/17 11:00 106 08/31/17 10:00 86 08/31/17 09:00 92 08/31/17 08:00 90 08/31/17 07:41 98.3 92 18 114/58 (76) 98 08/31/17 06:04 82 08/31/17 05:20 87 08/31/17 04:48 83 08/31/17 03:50 98.3 94 107/66 (80) 93 08/31/17 03:49 94 08/31/17 02:23 88 08/31/17 01:17 94 08/31/17 00:08 107 08/31/17 00:04 98.8 93 108/57 (74) 93 08/30/17 23:51 96 08/30/17 23:41 18 08/30/17 22:41 91 08/30/17 21:05 94 08/30/17 20:14 93 08/30/17 19:00 92 08/30/17 19:00 99.0 92 90/51 (64) 95 08/30/17 18:00 93 08/30/17 17:00 93 08/30/17 16:00 95 08/30/17 15:00 93 08/30/17 15:00 97.9 95 20 100/59 (73) 95 08/30/17 14:00 96 08/30/17 13:30 97.9 101 20 85/61 96 08/30/17 13:14 97.4 100 20 81/52 98 08/30/17 13:00 98 08/30/17 12:00 101 08/30/17 12:00 98/55 (69) 08/30/17 11:00 98.4 87 20 83/50 (61) 94 08/30/17 11:00 88 08/30/17 10:55 98.6 84 20 75/50 98 08/30/17 10:39 98.4 99 18 83/50 100 08/30/17 10:00 90 08/30/17 09:00 81 08/30/17 08:00 90 08/30/17 07:00 91 08/30/17 07:00 98.1 94 20 92/52 (65) 95 08/30/17 06:00 94 08/30/17 06:00 16 08/30/17 06:00 18 08/30/17 05:00 94 08/30/17 04:00 89 08/30/17 03:00 98.1 94 16 110/61 (77) 97 08/30/17 03:00 90 08/30/17 02:00 81 08/30/17 01:00 84 08/30/17 00:00 83 08/29/17 23:00 90 08/29/17 23:00 98.0 90 16 103/57 (72) 97 08/29/17 22:00 16 08/29/17 22:00 92 08/29/17 21:38 18 08/29/17 21:00 84 08/29/17 20:00 83 08/29/17 19:00 89 08/29/17 19:00 97.9 80 18 105/59 (74) 98 08/29/17 18:16 16 08/29/17 18:00 86 08/29/17 17:00 96 08/29/17 16:00 82 08/29/17 15:30 97.8 79 18 102/50 (67) 94 08/29/17 15:30 79 08/29/17 15:00 80 08/29/17 14:00 16 08/29/17 14:00 90 08/29/17 14:00 16 08/29/17 13:00 88 08/29/17 12:00 80 08/29/17 11:30 80 08/29/17 11:30 98.4 80 18 104/56 (72) 98 08/29/17 11:00 78 08/29/17 10:00 82 Discharge Condition: Good Discharge Disposition: Discharge Home Discharge Instructions: DIET Maintain a heart healthy diet ACTIVITY Activity as tolerated You may shower then pat dry incision -AFTER your wound vacs are removed NO tub baths or swimming until your incision is fully healed WOUND CARE B Groin Wound vacs to remain until MONDAY Leave your incision open to air once your wound vacs are removed Call to report an increase in swelling, pain, drainage or redness MEDICATIONS You were prescribed a narcotic pain medication that may cause drowsiness- no driving while taking this medication You were prescribed a narcotic pain medication that may cause constipation- Take with an over the counter stool softener Any questions or concerns: Call [facility] at [facility] [phone] Obdulia Staton Sep 01, 2017 09:21
[2017-09-01] MEDS: VENLAFAXINE HCL XR 75 MG CAP PO SCH (10:10)
[2017-09-01] MEDS: ENOXAPARIN SODIUM 40 MG/0.4 ML SYRINGE SQ SCH (10:10)
[2017-09-01] MEDS: SERTRALINE HCL 50 MG TAB PO SCH (10:10)
[2017-09-01] MEDS: FAMOTIDINE 20 MG TAB PO SCH (10:11)
[2017-09-01] MEDS: MULTIVITAMINS/MINERALS THERAPEUTIC TAB PO SCH (10:11)
[2017-09-01] MEDS: metFORMIN HCL 500 MG TAB PO SCH (10:11)
[2017-09-01] MEDS: DOCUSATE SODIUM 50 MG/SENNA 8.6 MG TAB PO SCH (10:11)
[2017-09-01] MEDS: AMITRIPTYLINE HCL 50 MG TAB PO SCH (10:11)
[2017-09-01] MEDS: ASPIRIN 325 MG TAB PO SCH (10:12)
== END 2017-09-01 13:50 | disposition home or self-care (01) | DRG 254 ==
LOC: HSDI 05:42 → HCPC 13:01
PROVIDERS: ADMIT Surgery; ATTEND Surgery
PROC: 03150J8 Bypass Right Axillary Artery to Bilateral Upper Leg Artery with Synthetic Substitute, Open Approach (ICD-10-PCS; 2017-08-28)
PROC: 04UL0KZ Supplement Left Femoral Artery with Nonautologous Tissue Substitute, Open Approach (ICD-10-PCS; 2017-08-28)
PROC: 04UK0KZ Supplement Right Femoral Artery with Nonautologous Tissue Substitute, Open Approach (ICD-10-PCS; 2017-08-28)
PROC: 04CL0ZZ Extirpation of Matter from Left Femoral Artery, Open Approach (ICD-10-PCS; principal; 2017-08-28 07:31)
PROC: 04CK0ZZ Extirpation of Matter from Right Femoral Artery, Open Approach (ICD-10-PCS; 2017-08-28 07:31)
PROC: 30233N1 Transfusion of Nonautologous Red Blood Cells into Peripheral Vein, Percutaneous Approach (ICD-10-PCS; 2017-08-30)
DX: I74.09 Other arterial embolism and thrombosis of abdominal aorta (principal); I73.9 Peripheral vascular disease, unspecified; R11.10 Vomiting, unspecified
CPT/HCPCS: 36415; 36430; 80048; 85025; 85027; 85610; 86850; 86900; 86901; 86920; C1768; J0131; J0690; J1100; J1644; J1650; J2250; J2270; J2370; J2405; J2720; J3010; J7040; J7050; J7120; P9016

== ENCOUNTER 2017-09-04 10:26 | Emergency (ER) | payer MEDICARE, OTHER ==
[~2017-09-04] VITALS: Ht 147.3 cm; Wt 45.0 kg
[2017-09-04 10:33] VITALS: BP 122/57; PULSE 78; RESP 17; TEMP 98.2; O2SAT 98
--- NOTE | 2017-09-04 10:51 | PD ---
HPI Chief Complaint: Medical Clearance Time Seen by Provider: 10:35 Travel History International Travel<30 days: No Contact w/Intl Traveler<30days: No Traveled to known affect area: No History of Present Illness HPI 56-year-old female presents to the emergency department via EMS with complaint that her right groin wound VAC is not suctioning since this morning when she woke up. She had bilateral femoral bypass on August [address] Leigh. Her left groin wound VAC is working properly. Denies fever, vomiting. Denies chest pain , shortness breath, abdominal pain. Denies lightheadedness, dizziness, headache. Denies anticoagulant therapy. The only complaint is that she has had continued feet pain and tightness after the surgery. She has been taking oxycodone for symptom management and has not taken it this morning yet. Rates pain 8/10. Worse with pressure and ambulation to her feet. Says her bilateral groin wounds are also painful. Allergies to albuterol. Primary CARE providers Dr. may. Dr. Leigh is cardiovascular surgeon. History of peripheral vascular disease with aortoiliac occlusion, type 2 diabetes, hypercholesterolemia, COPD. Has no other medical complaints. No other modifying factors or associated signs and symptoms. PFSH Past Medical History Cancer: No Cardiovascular Problems: Yes (IRREGULAR RHYTHM) Diabetes: Yes (NIDDM) Endocrine: Yes Genitourinary: No Hepatitis: No Hiatal Hernia: No Immune Disorder: No Musculoskeletal: Yes (BACK AND NECK PAIN PREVIOUS INJURY, OCCAS BILAT HIP PAIN ) Neurologic: Yes (NUMBNESS TO BLE, OCCAS NUMBNESS TO HANDS) Psychiatric: Yes Reproductive: No Respiratory: Yes (COPD, ASTHMA, BRONCHITIS) Thyroid Disease: No Menopausal: Yes Tubal Ligation: Yes Past Surgical History Abdominal Surgery: No AICD: No Body Medical Devices: PIN IN L ELBOW, Cardiac Surgery: Yes (ANGIOPLASTY, AORTIC/ILLIAC BY PASS 08/07/17) Ear Surgery: No Endocrine Surgery: No Eye Surgery: No Genitourinary Surgery: No Gynecologic Surgery: Yes (TUBAL) Joint Replacement: No Oral Surgery: Yes (TONSILLECTOMY, EXTRACTIONS) Pacemaker: No Thoracic Surgery: Yes (LEFT BREAST BIOPSY/LUMPECTOMY X2-BENIGN TUMOR) Tonsillectomy: Yes Social History Alcohol Use: No Tobacco Use: Yes (1/2 PPD) Substance Use: Yes (CANNABIS, DAILY CBD OILS DAILY) Allergies-Medications (Allergen,Severity, Reaction): Coded Allergies: albuterol (Unverified Allergy, Severe, SOB, 08/28/17) epinephrine (Unverified Allergy, Severe, SOB, 08/28/17) Uncoded Allergies: DRISTAN (Allergy, Severe, SOB, 07/02/12) Reported Meds & Prescriptions Reported Meds & Active Scripts Active Oxycodone (Oxycodone HCl) 5 Mg Cap 5 Mg PO Q4H PRN Commode 3-in-1 (Device) 1 Mis Mis Ea .XX DIRECTED Walker Rolling/GetGo (Device) 1 Mis Mis Ea .XX DIRECTED Px Aspirin (Aspirin) 325 Mg Tab 325 Mg PO DAILY 30 Days Atorvastatin (Atorvastatin Calcium) 40 Mg Tab 40 Mg PO HS 30 Days Reported Womens One Daily (Multiple Vitamins W/ Minerals) 27 Mg-0.4 Mg Tab 1 Tab PO DAILY Tizanidine (Tizanidine HCl) 4 Mg Cap 4 Mg PO TID Amitriptyline (Amitriptyline HCl) 50 Mg Tab 50 Mg PO DAILY Metformin (Metformin HCl) 500 Mg Tab 500 Mg PO BIDPC Sertraline (Sertraline HCl) 50 Mg Tab 50 Mg PO DAILY Venlafaxine ER 24 HR (Venlafaxine HCl) 75 Mg Cap 75 Mg PO DAILY Benadryl Allergy (Diphenhydramine HCl) 25 Mg Cap 25 Mg PO QID PRN Review of Systems Except as stated in HPI: all other systems reviewed are Neg Physical Exam Narrative GENERAL: Well-nourished, well-developed female patient, in no acute distress; afebrile, nontoxic-appearing SKIN: Warm and dry. Right groin wound vac sponge in place and without suction; surgical incision below is well approximated with sutures intact and without erythema, edema; minimal amount of dark red drainage noted. Left groin with wound VAC dressing in place and suction working appropriately. Bilateral lower extremities are supple and nontender with 1+ pedal pulses and sensory intact and without erythema or edema. HEAD: Atraumatic. Normocephalic. EYES: Pupils equal and round. No scleral icterus. No injection or drainage. ENT: Mucosa pink and moist. Airway patent. NECK: Trachea midline. CARDIOVASCULAR: Regular rate. RESPIRATORY: No accessory muscle use. GASTROINTESTINAL: Flat. MUSCULOSKELETAL: No obvious deformities. No clubbing. No cyanosis. No edema. NEUROLOGICAL: Awake and alert. Oriented 3. No obvious cranial nerve deficits. Motor grossly within normal limits. Normal speech. PSYCHIATRIC: Appropriate mood and affect; insight and judgment normal. Data Data Last Documented VS Vital Signs Date Time Temp Pulse Resp B/P (MAP) Pulse Ox O2 Delivery O2 Flow Rate FiO2 09/04/17 10:33 98.2 78 17 122/57 (78) 98 Orders Orders Oxycodone-Acetamin 5-325 Mg (Percocet (09/04/17 11:00) MDM Medical Decision Making Medical Screen Exam Complete: Yes Emergency Medical Condition: Yes Medical Record Reviewed: Yes Differential Diagnosis Encounter for management of wound VAC, surgical wound recheck, medical clearance Narrative Course 56-year-old female arrives via EMS for management of her right groin wound VAC; it is not suctioning. She had bilateral femoral bypass on August [address] Leihg. 1045: I spoke with Dr. Leigh and he is coming to the bedside to see the patient. 1106: Dr. Leigh at bedside. 1115: Dr. Leigh remove the wound VAC and does not want it replaced. He will follow up with her outpatient at her scheduled appointment. She is also asking for physical therapy, which she had offered her after the surgery. Physical therapy ordered. wound Dressing ordered. Instructed patient to follow-up with Dr. Leigh at her scheduled appointment. Instructed patient to follow up with primary care provider. Patient verbalizes understanding and agreement with treatment plan. Patient is medically cleared and stable for discharge. Discussed reasons to return to the emergency department. Patient agrees with treatment plan. The patients vital signs are stable and the patient is stable for outpatient follow-up and treatment. Patient discharged home, stable and in no acute distress. Diagnosis Primary Impression: Encounter for management of wound VAC Referrals: Aashish Leigh MD Primary Care Physician Patient Instructions: General Instructions Additional Instructions: Follow-up with Dr. Leigh Med/Other Pt SpecificInfo: No Change to Meds, No Meds Exist/No RX given Disposition: 01 DISCHARGE HOME Condition: Stable Lakisha Yuan Sep 04, 2017 10:51
[2017-09-04] MEDS ORDERED: oxyCODONE/ACETAMINOPHEN 5 MG/325 MG TAB PO ONE (11:00)
--- NOTE | 2017-09-04 11:26 | HHI.FF ---
Face to Face Verification Diagnosis: (1) PAD (peripheral artery disease) Physical Therapy Order: Evaluate and Treat, Improve ambulation, Strength and gait training I have seen patient Deidra Oliveira on 09/04/17. My clinical findings support the need for the requested home health care services because: The patient was offered physical therapy by Dr. Leigh on August 28 and the patient declined at that time. She is now requesting physical therapy. Ltd mobility - disease progression I certify that my clinical findings support that this patient is homebound because: The patient was offered physical therapy by Dr. Leigh on August 28 and the patient declined at that time. She is now requesting physical therapy. Unsteady gait/balance Lakisha Yuan Sep 04, 2017 11:26
--- NOTE | 2017-09-04 12:09 | PD.VS.PN ---
Subjective Subjective/Hospital Course Pt s/p R ax-fem-fem who presents with R groin VAC malfunction (Prevena) and B foot pain. No fevers. Objective Vitals/I&O Date Time Temp Pulse Resp B/P (MAP) Pulse Ox O2 Delivery O2 Flow Rate FiO2 09/04/17 10:33 98.2 78 17 122/57 (78) 98 Physical Exam No distress R axillary incision R and L Prevena removed. R groin with superficial breakdown and serous drainage - no odor and no incisional erythema L groin incact palpable DP bilaterally Assessment and Plan Plan Ax-fem-fem with groin wound breakdown and Prevena malfunction 1. F/u in my clinic next week - appointment made for 09/13 2 she refused rehab when in hospital but now would like to have rehab which i think is reasonable. discussed with ED 3. unclear cause of B foot pain - palpable pulses Aashish Leigh MD [employer] electrical line worker [facility] Surgery at [facility] [phone] Aashish Leigh MD Sep 04, 2017 12:09
[2017-09-04 14:10] VITALS: BP 109/63; PULSE 75; RESP 17; O2SAT 96
== END 2017-09-04 14:12 | disposition home or self-care (01) ==
LOC: NEPD 10:26
DX: Z48.03 Encounter for change or removal of drains (principal); G89.18 Other acute postprocedural pain; Z98.890 Other specified postprocedural states
CPT/HCPCS: 99281

== ENCOUNTER 2017-09-05 17:37 | Emergency (ER) | payer MEDICARE, OTHER ==
[~2017-09-05] VITALS: Ht 147.3 cm; Wt 52.0 kg
[2017-09-05 17:39] VITALS: PULSE 141; RESP 26
[2017-09-05] MEDS ORDERED: SODIUM CHLOR 0.9% 1000 ML INJ 1,000 ML IV ONE (17:45)
--- NOTE | 2017-09-05 18:04 | RADRPT ---
EXAM DATE: 09/05/2017 6:00 PM EDT AGE/SEX: 56 years / Female INDICATIONS: Palpitations. CLINICAL DATA: This is the patient's initial encounter. Patient reports that signs and symptoms have been present for 1 day and indicates a pain score of Nonresponsive. MEDICAL/SURGICAL HISTORY: Non-responsive. Non-responsive. COMPARISON: [facility] [place] [place] [facility] [place], 08/03/2017. . FINDINGS: No new focal pleural or parenchymal opacities. Cardiomegaly saw contours are within normal limits. Mike ny thorax is intact. CONCLUSION: 1. No acute abnormality or significant interval change. Electronically signed by: Elmer Escudero MD 09/05/2017 6:03 PM EDT
[2017-09-05] MEDS ORDERED: NOREPINEPHRINE 4 MG/4 ML AMP ONE (18:12)
[2017-09-05 18:15] VITALS: PULSE 137; RESP 41; TEMP 97.8
[2017-09-05] MEDS ORDERED: SODIUM CHLOR 0.9% 250 ML INJ 250 ML IV ONE (18:15)
[2017-09-05 18:19] LABS: AUTOMATED NEUTROPHIL # 9.5 TH/MM3 (1.8-7.7); BASOPHIL % 0.3 % (0.0-2.0); EOSINOPHIL # 0.2 TH/MM3 (0-0.4); EOSINOPHIL % 2.1 % (0.0-4.0); HEMATOCRIT 27.8 % (35.0-46.0); HEMOGLOBIN 9.2 GM/DL (11.6-15.3); LYMPH % 4.4 % (9.0-44.0); LYMPHOCYTE # 0.5 TH/MM3 (1.0-4.8); MEAN CELL VOLUME 89.3 FL (80.0-100.0); MEAN CORPUSCULAR HEMOGLOBIN 29.5 PG (27.0-34.0); MEAN PLATELET VOLUME 9.3 FL (7.0-11.0); MONO % 3.9 % (0.0-8.0); MONOCYTE # 0.4 TH/MM3 (0-0.9); NEUT % 89.3 % (16.0-70.0); PLATELET COUNT 343 TH/MM3 (150-450); RED BLOOD COUNT 3.11 MIL/MM3 (4.00-5.30); RED CELL DISTRIBUTION WIDTH 16.2 % (11.6-17.2); WHITE BLOOD COUNT 10.6 TH/MM3 (4.0-11.0)
[2017-09-05] MEDS ORDERED: DOPamine 400 MG/250 ML INJ 250 ML ONE (18:22)
[2017-09-05] MEDS ORDERED: PIPERACIL-TAZO 4.5 GM PREMIX 100 ML IV STA (18:24)
[2017-09-05] MEDS ORDERED: VANCOMYCIN INJ 1,000 MG in SODIUM CHLOR 0.9% 250 ML INJ 250 ML IV STA (18:24)
--- NOTE | 2017-09-05 18:24 | PD ---
HPI Chief Complaint: Pain: Acute or Chronic Time Seen by Provider: 17:42 Travel History International Travel<30 days: No Contact w/Intl Traveler<30days: No Traveled to known affect area: No History of Present Illness HPI 56-year-old female presents with slurred speech and hypotension. The ambulance team had difficulty getting up pulse ox. They state she recently was in the hospital getting her wound VAC taken off and had recent surgery to her abdomen. They state that history was difficult to obtain otherwise from patient given her speech. History still is difficult to obtain here given speech and hypotension. PFSH Past Medical History Cancer: No Cardiovascular Problems: Yes (IRREGULAR RHYTHM) Diabetes: Yes (NIDDM) Endocrine: Yes Gastrointestinal Disorders: No Genitourinary: No Hepatitis: No Hiatal Hernia: No Hypertension: No Immune Disorder: No Musculoskeletal: Yes (BACK AND NECK PAIN PREVIOUS INJURY, OCCAS BILAT HIP PAIN ) Neurologic: Yes (NUMBNESS TO BLE, OCCAS NUMBNESS TO HANDS) Psychiatric: Yes Reproductive: No Respiratory: Yes (COPD, ASTHMA, BRONCHITIS) Thyroid Disease: No Menopausal: Yes Tubal Ligation: Yes Past Surgical History Abdominal Surgery: No AICD: No Body Medical Devices: PIN IN L ELBOW, Cardiac Surgery: Yes (ANGIOPLASTY, AORTIC/ILLIAC BY PASS 08/07/17) Ear Surgery: No Endocrine Surgery: No Eye Surgery: No Genitourinary Surgery: No Gynecologic Surgery: Yes (TUBAL) Joint Replacement: No Neurologic Surgery: No Oral Surgery: Yes (TONSILLECTOMY, EXTRACTIONS) Pacemaker: No Thoracic Surgery: Yes (LEFT BREAST BIOPSY/LUMPECTOMY X2-BENIGN TUMOR) Tonsillectomy: Yes Other Surgery: Yes Social History Alcohol Use: No Tobacco Use: Yes (1/2 PPD) Substance Use: Yes (CANNABIS, DAILY CBD OILS DAILY) Allergies-Medications (Allergen,Severity, Reaction): Coded Allergies: albuterol (Unverified Allergy, Severe, SOB, 09/05/17) epinephrine (Unverified Allergy, Severe, SOB, 09/05/17) Uncoded Allergies: DRISTAN (Allergy, Severe, SOB, 07/02/12) Reported Meds & Prescriptions Reported Meds & Active Scripts Active Oxycodone (Oxycodone HCl) 5 Mg Cap 5 Mg PO Q4H PRN Commode 3-in-1 (Device) 1 Mis Mis Ea .XX DIRECTED Walker Rolling/GetGo (Device) 1 Mis Mis Ea .XX DIRECTED Px Aspirin (Aspirin) 325 Mg Tab 325 Mg PO DAILY 30 Days Atorvastatin (Atorvastatin Calcium) 40 Mg Tab 40 Mg PO HS 30 Days Reported Womens One Daily (Multiple Vitamins W/ Minerals) 27 Mg-0.4 Mg Tab 1 Tab PO DAILY Tizanidine (Tizanidine HCl) 4 Mg Cap 4 Mg PO TID Amitriptyline (Amitriptyline HCl) 50 Mg Tab 50 Mg PO DAILY Metformin (Metformin HCl) 500 Mg Tab 500 Mg PO BIDPC Sertraline (Sertraline HCl) 50 Mg Tab 50 Mg PO DAILY Venlafaxine ER 24 HR (Venlafaxine HCl) 75 Mg Cap 75 Mg PO DAILY Benadryl Allergy (Diphenhydramine HCl) 25 Mg Cap 25 Mg PO QID PRN Review of Systems ROS Limitations: Speech Impaired, Other: (hypotension) Except as stated in HPI: all other systems reviewed are Neg Physical Exam Narrative GENERAL: 56 y/o female who appears ill SKIN: Focused skin assessment warm/dry. HEAD: Atraumatic. Normocephalic. EYES: Pupils equal and round. No scleral icterus. No injection or drainage. ENT: No nasal bleeding or discharge. Mucous membranes pink and dry NECK: Trachea midline. CARDIOVASCULAR: Tachycardic rate and regular rhythm RESPIRATORY: No accessory muscle use. Clear to auscultation. Breath sounds equal bilaterally. GASTROINTESTINAL: Abdomen soft, non-tender, nondistended. post op wounds noted MUSCULOSKELETAL: No obvious deformities. No clubbing. No cyanosis. NEUROLOGICAL:awake with eyes open, moves all extremities, slurred speech Data Data Last Documented VS Vital Signs Date Time Temp Pulse Resp B/P (MAP) Pulse Ox O2 Delivery O2 Flow Rate FiO2 09/05/17 18:34 132 09/05/17 18:15 97.8 41 Non-Rebreather 15.00 09/05/17 17:39 Orders Orders Sepsis Workup Initiated (09/05/17 ) Electrocardiogram (09/05/17 17:42) Complete Blood Count With Diff (09/05/17 17:42) Comprehensive Metabolic Panel (09/05/17 17:42) Prothrombin Time / Inr (Pt) (09/05/17 17:42) Act Partial Throm Time (Ptt) (09/05/17 17:42) Lactic Acid Sepsis Protocol (09/05/17 17:42) Magnesium (Mg) (09/05/17 17:42) Phosphorus (Po4) (09/05/17 17:42) Ckmb (Isoenzyme) Profile (09/05/17 17:42) Troponin I (09/05/17 17:42) Blood Culture (09/05/17 17:42) Chest, Single Ap (09/05/17 17:42) Ecg Monitoring (09/05/17 17:42) Iv Access Insert/Monitor (09/05/17 17:42) Oximetry (09/05/17 17:42) Sodium Chlor 0.9% 1000 Ml Inj (Ns 1000 M (09/05/17 17:45) Norepinephrine Inj (Levophed Inj) (09/05/17 18:12) Sodium Chlor 0.9% 250 Ml Inj (Ns 250 Ml (09/05/17 18:15) Type And Screen (09/05/17 18:15) Dopamine 800 Mg/500 Ml Inj (Dopamine 800 (09/05/17 18:30) Terbutaline Inj (Brethine Inj) (09/05/17 18:30) Dopamine 400 Mg/250 Ml Inj (Dopamine 400 (09/05/17 18:22) Vancomycin Inj (Vancomycin Inj) (09/05/17 18:24) Piperacil-Tazo 4.5 Gm Premix (Zosyn 4.5 (09/05/17 18:24) Succinylcholine Inj (Quelicin Inj) (09/05/17 18:34) Etomidate Inj (Amidate Inj) (09/05/17 18:35) Epinephrine (1:10,000) Inj (Epinephrine (09/05/17 18:38) Vasopressin Inj (Pitressin Inj) (09/05/17 18:49) Vasopressin Inj (Pitressin Inj) (09/05/17 18:50) CKMB (09/05/17 17:50) CKMB% (09/05/17 17:50) Labs Laboratory Tests Test 09/05/17 17:50 White Blood Count 10.6 TH/MM3 Red Blood Count 3.11 MIL/MM3 Hemoglobin 9.2 GM/DL Hematocrit 27.8 % Mean Corpuscular Volume 89.3 FL Mean Corpuscular Hemoglobin 29.5 PG Mean Corpuscular Hemoglobin Concent 33.0 % Red Cell Distribution Width 16.2 % Platelet Count 343 TH/MM3 Mean Platelet Volume 9.3 FL Neutrophils (%) (Auto) 89.3 % Lymphocytes (%) (Auto) 4.4 % Monocytes (%) (Auto) 3.9 % Eosinophils (%) (Auto) 2.1 % Basophils (%) (Auto) 0.3 % Neutrophils # (Auto) 9.5 TH/MM3 Lymphocytes # (Auto) 0.5 TH/MM3 Monocytes # (Auto) 0.4 TH/MM3 Eosinophils # (Auto) 0.2 TH/MM3 Basophils # (Auto) 0.0 TH/MM3 CBC Comment DIFF FINAL Differential Comment Prothrombin Time 14.1 SEC Prothromb Time International Ratio 1.4 RATIO Activated Partial Thromboplast Time 32.0 SEC Blood Urea Nitrogen 17 MG/DL Creatinine 0.90 MG/DL Random Glucose 71 MG/DL Total Protein 4.7 GM/DL Albumin 1.5 GM/DL Calcium Level 7.4 MG/DL Phosphorus Level 4.5 MG/DL Magnesium Level 1.9 MG/DL Alkaline Phosphatase 86 U/L Aspartate Amino Transf (AST/SGOT) 383 U/L Alanine Aminotransferase (ALT/SGPT) 103 U/L Total Bilirubin 0.8 MG/DL Sodium Level 125 MEQ/L Potassium Level 3.8 MEQ/L Chloride Level 90 MEQ/L Carbon Dioxide Level 11.0 MEQ/L Anion Gap 24 MEQ/L Estimat Glomerular Filtration Rate 64 ML/MIN Lactic Acid Level 11.9 mmol/L Protein Corrected Calcium 8.8 MG/DL Total Creatine Kinase 6930 U/L Creatine Kinase MB 139.2 NG/ML Creatine Kinase MB % 2.0 % Troponin I 0.58 NG/ML MDM Medical Decision Making Medical Screen Exam Complete: Yes Emergency Medical Condition: Yes Medical Record Reviewed: Yes (pmh confirmed, recent note review and OR) Interpretation(s) CBC & BMP Diagram 09/05/17 17:50 Total Protein 4.7 L, Albumin 1.5 L, Calcium Level 7.4 *L, Phosphorus Level 4.5, Magnesium Level 1.9, Alkaline Phosphatase 86, Aspartate Amino Transf (AST/SGOT) 383 H, Alanine Aminotransferase (ALT/SGPT) 103 H, Total Bilirubin 0.8 Last 24 hours Impressions Chest X-Ray 09/05/17 3102 Signed Impressions: CONCLUSION: 1. No acute abnormality or significant interval change. Differential Diagnosis Hemorrhagic shock, septic shock, hypovolemic shock, intra-abdominal bleed, acute renal failure Narrative Course Patient arrived with 78/40 blood pressure and sinus tachycardia in the 130s. Given 1 fluid of liters with the ambulance team. Given additional liter here and blood pressure unchanged. Will start on dopamine while awaiting workup for blood pressure. When I went in the room to reassess patient daughter was at bedside and she remained hypotensive. Levophed was added on. Shortly after this patient became less responsive. Levophed and dopamine were titrated up. She was given push dose epi at half a milligram doses as I cannot get a blood pressure. While titrating up drips. She still had a pulse and was breathing on her own. But then patient lost her pulse and stopped breathing and went into PEA so CPR was initiated. She was given epinephrine, calcium, bicarb and epinephrine drip was started. She was still clenched down so succinylcholine was given for intubation. Good end-tidal. Good breath sounds. Dr. Shultz confirmed airway as well. She helped place an EJ on the left for additional access. Patient was given additional bicarb and since glucose was 30 she was given 2 things of dextrose. ICU physician was called and he came to bedside and given 25 minute duration and PEA code with multiple rounds of epi, calcium, bicarb been on 3 pressor drips he states it was time to call time of which was done in 192. I went out with ICU doctor notified family and questions were answered. Critical Care Narrative Aggregate critical care time was 75 minutes. Time to perform other separately billable procedures was not included in the critical care time. My time did not include minutes spent treating any other patients simultaneously or on activities that did not directly contribute to the patient's treatment. The services I provided to this patient were to treat and/or prevent clinically significant deterioration that could result in: shock, I provided critical care services requiring my management, as noted below: Chart data review, documentation time, medication orders and management, vital sign assessments/reviewing monitor data, ordering and reviewing lab tests, ordering and interpreting/reviewing x-rays and diagnostic studies, care of the patient and discussion of the patient with the admitting physicians. Procedures Procedure Narrative Emergently performed and briefly discussed with daughter: INTUBATION: The patient was put in optimal position for the procedure. Rapid sequence intubation was initiated by me using 100 milligrams of succinylcholine IV. The patient was intubated with a 7.5 cuffed endotracheal tube. Tube placement was confirmed by visualization of the tube and balloon passing through the cords, capnometry. Breath sounds were equal and well aerated bilaterally postintubation. No breath sounds over stomach. Patient tolerated procedure well. Physician Communication Physician Communication icu doctor came and assisted with medical PEA code dr jennings updated about clinical course Diagnosis Primary Impression: Septic shock Additional Impressions: Cardiac arrest Anemia Qualified Codes: D64.9 - Anemia, unspecified Hyponatremia Hypoglycemia Rhabdomyolysis Qualified Codes: M62.82 - Rhabdomyolysis Disposition: 20 Condition: Marylu Wolf MD Sep 05, 2017 18:24
[2017-09-05] MEDS ORDERED: TERBUTALINE INJ 1 MG/ML AMP SQ PRN (18:30)
[2017-09-05] MEDS ORDERED: DOPamine 800 MG/500 ML INJ 500 ML IV PRN (18:30)
[2017-09-05 18:33] LABS: INTERNATIONAL NORMALIZED RATIO 1.4 RATIO; PROTHROMBIN TIME - PATIENT 14.1 SEC (9.8-11.6)
[2017-09-05 18:34] VITALS: PULSE 132
[2017-09-05] MEDS ORDERED: SUCCINYLCHOLINE CHLORIDE 200 MG/10 ML VIAL ONE (18:34)
[2017-09-05] MEDS ORDERED: ETOMIDATE 40 MG/20 ML VIAL ONE (18:35)
[2017-09-05] MEDS ORDERED: EPINEPHrine HCL (1:10,000) 1 MG/10 ML SYRINGE ONE (18:38)
[2017-09-05] MEDS ORDERED: VASOPRESSIN 20 UNITS/ML VIAL ONE ×2 (18:49→18:50)
[2017-09-05 18:54] LABS: ALBUMIN 1.5 GM/DL (3.4-5.0); CALCIUM 7.4 MG/DL (8.5-10.1); CREATININE 0.9 MG/DL (0.50-1.00); MAGNESIUM 1.9 MG/DL (1.5-2.5); PHOSPHORUS 4.5 MG/DL (2.5-4.9)
[2017-09-05 19:01] LABS: TOTAL BILIRUBIN ADULT 0.8 MG/DL (0.2-1.0); TOTAL PROTEIN 4.7 GM/DL (6.4-8.2); TROPONIN I 0.58 NG/ML (0.02-0.05)
[2017-09-05 19:02] LABS: CALCIUM-PROTEIN CORRECTED 8.8 MG/DL (8.5-10.1)
[2017-09-05 19:06] LABS: LACTIC ACID SEPSIS PROTOCOL 11.9 mmol/L (0.4-2.0)
--- NOTE | 2017-09-07 18:17 | EKG ---
Date Performed: 09/05/2017 Time Performed: 17:51:00 PTAGE: 56 years EKG: SINUS TACHYCARDIA POSSIBLE LATERAL MYOCARDIAL INFARCTION ABNORMAL ECG PREVIOUS TRACING : 08/03/2017 11.37 When compared to the prior EKG,patient is now tachycardic DOCTOR: Татьяна Brewer Interpretating Date/Time 09/07/2017 18:16:06
== END 2017-09-05 21:58 | disposition expired ==
LOC: NEPE 17:37 → NEPI 21:58
DX: T81.4XXA Infection following a procedure, initial encounter (principal); T81.12XA Postprocedural septic shock, initial encounter; I46.9 Cardiac arrest, cause unspecified; D64.9 Anemia, unspecified; E87.1 Hypo-osmolality and hyponatremia; E11.649 Type 2 diabetes mellitus with hypoglycemia without coma; M62.82 Rhabdomyolysis; R00.0 Tachycardia, unspecified; J45.909 Unspecified asthma, uncomplicated; J44.9 Chronic obstructive pulmonary disease, unspecified; F12.90 Cannabis use, unspecified, uncomplicated; F17.200 Nicotine dependence, unspecified, uncomplicated; Z79.82 Long term (current) use of aspirin; Z79.899 Other long term (current) drug therapy; Z88.8 Allergy status to other drugs, medicaments and biological substances
CPT/HCPCS: 31500; 36556; 71045; 80053; 82550; 82552; 83605; 83735; 84100; 84484; 85025; 85610; 85730; 86403; 86850; 86900; 86901; 86920; 87040; 87147; 87205; 92950; 93005; 96374; 99291; J0171; J0330; J1265; J7030